=== PATIENT | female | born 1965 | race Caucasian/White ===

== ENCOUNTER 2016-10-08 17:48 | Emergency (ER) | payer MEDICAID ==
[~2016-10-08 17:48] MED LIST: ASPIRIN 81 MG CHEWTAB ONE; MORPHINE SULFATE INJ 4 MG ONE; NITROSTAT SL ONE; ZOFRAN INJ 4 MG VIAL ONE
[2016-10-08] MEDS ORDERED: ZOFRAN INJ 4 MG VIAL IVP ONE (18:01)
[2016-10-08] MEDS ORDERED: ASPIRIN 81 MG CHEWTAB PO ONE (18:01)
[2016-10-08] MEDS ORDERED: MORPHINE SULFATE INJ 4 MG IVP ONE (18:01)
[2016-10-08] MEDS ORDERED: NITROSTAT SL PRN (18:01)
[2016-10-08 18:06] VITALS: BMI 26.7
[2016-10-08 18:16] LABS: BASOPHILS # (AUTO) 0.1 X10^3/uL (0.0-0.1); BASOPHILS % (AUTO) 0.4 % (0.2-1.0); EOSINOPHILS # (AUTO) 0.3 x10^3/uL (0.0-0.2); EOSINOPHILS % (AUTO) 1.4 % (0.9-2.9); HEMATOCRIT 35.4 % (36.0-47.0); HEMOGLOBIN 12.1 g/dL (12.0-16.0); LYMPHOCYTES # (AUTO) 7.2 X10^3/uL (1.3-2.9); LYMPHOCYTES % (AUTO) 38.2 % (21.0-51.0); MEAN CORPUSCULAR HEMOGLOBIN 26.1 pg (27.0-34.0); MEAN CORPUSCULAR HGB CONC 34.3 g/dL (33.0-35.0); MEAN PLATELET VOLUME 7.3 fL (7.4-11.0); MONOCYTES # (AUTO) 0.6 x10^3/uL (0.3-0.8); MONOCYTES % (AUTO) 3.2 % (0.0-13.0); NEUTROPHILS # (AUTO) 10.8 x10^3/uL (2.2-4.8); NEUTROPHILS % (AUTO) 56.8 % (42.0-75.0); PLATELET COUNT 487 X10^3/uL (150.0-450.0); RED BLOOD COUNT 4.65 X10^6/uL (3.5-5.4); RED CELL DISTRIBUTION WIDTH 15.6 % (11.6-16.5)
--- NOTE | 2016-10-08 18:30 | RAD ---
HISTORY: Pain Study: Portable chest Comparison: None Findings: The heart is normal. The pulmonary vessels are normal. No consolidation or effusion is seen. The bon es are intact. IMPRESSION: No acute cardiopulmonary abnormality. Reported By:
[2016-10-08] MEDS ORDERED: DILAUDID INJ IVP ONE ×2 (18:31→20:28)
[2016-10-08 18:33] LABS: ALANINE AMINOTRANSFERASE 29 Units/L (12-78); ALBUMIN 3.7 g/dL (3.4-5.0); ALKALINE PHOSPHATASE 113 Units/L (46-116); ASPARTATE AMINO TRANSFERASE 19 Units/L (15-37); BLOOD UREA NITROGEN 10 mg/dL (7-18); CALCIUM 9.2 mg/dL (8.5-10.1); CARBON DIOXIDE 26.2 mmol/L (21-32); CHLORIDE 93 mmol/L (98-107); CKMB % 2.6 % (<4); COR NA(FOR HYPERGLY) 135 mmol/L (136-145); CREATINE KINASE 39 Units/L (26-192); CREATINE KINASE MB < 1.0 ng/mL (0-4.0); CREATININE 1.03 mg/dL (0.55-1.02); GLUCOSE 273 mg/dL (65-99); SODIUM 131 mmol/L (136-145); TOTAL PROTEIN 8.2 g/dL (6.4-8.2); TROPONIN I < 0.02 ng/mL (0-1.5); eGFR BLACK RACES > 60 (>60); eGFR NON BLACK RACES > 60 (>60)
[2016-10-08] MEDS ORDERED: DILAUDID INJ ONE ×2 (18:33→20:29)
--- NOTE | 2016-10-08 18:34 | DR.CP ---
HPI - Time Seen Time seen: 18:10 - PCP Primary Care Physician: LUIS - HPI Comment HPI Comment: SUDDEN ONSET OF CHEST PAIN RADIATING TO NECK AND LT ARM TIMES 30 MIN. GETTING WORSE. CARDIAC STENT PLACE SEP 20 2016. PAIN 02/06. - Complaint Chief Complaint Doctor Comments: CHEST PAIN Chief Complaint:: PT C/O SHARP PRESSURE TYPE CHEST PAINS THAT IS RADIATING DOWN LT ARM. PT SATES I JUST HAD A HEART ATTACK 3 WEEKS AGO. Self Treatment fo Chief Complaint: x2 nitro sl and x1 81mg asa - Reviewed Nurses Notes Review: Yes - Source History Provided: Patient, Parent - Mode of Arrival Mode of Arrival: Wheelchair - Timing Onset of Chief Complaint: 10/08/16 Came on: Suddenly Pain: Present Now - Duration Duration: Constant Duration: Minutes - Location Location of Chest Pain: Left, Chest Chest Pain Radiation Location: Left Jaw, Left Arm - Context Onset: At rest Cardiac Risk Factors: Smoker, Hyperlipidemia, HTN, Diabetes PE Risk Factors: None History of: Similar pain in the past, [place], Angina, Angioplasty Prehospital Care: SL Nitro, ASA - Quality Quality: Sharp, Stabbing - Severity Severity: Severe - Modifying Factors Worsens: Nothing Impoves: Nothing - Associated Signs and Symptoms Associated Signs and Symptoms: Shortness of Breath, Nausea/Vomiting (NAUSEA) PMH - PMH Past Medical History: Yes Past Medical History: Anxiety, Depression, Diabetes, Dyslipidemia, Hypertension , [place] Past Surgical History: Yes Surgical History: Appendectomy, , Cholecystectomy, Hysterectomy Past Surgical History Comment: HEART CATH - Family History History of Family Medical Conditions: No - Social History Does patient currently use any type of tobacco product: Yes Have you used tobacco products in the last 12 months: Yes Type of Tobacco Use: Cigarettes Does any household member use tobacco: Yes Alcohol Use: None Do you use any recreational Drugs:: No Lives With: Family Lives Where: Home - infectious screening In the last 2 months have you had wt loss of >10#?: NO Have you had fever, night sweats or hemotysis?: No Have you traveled outside the country in the last 6 months?: No Isolation: Standard ROS - Review of Systems Constitutional: Weakness, Fatigue Eyes: No Symptoms Reported ENTM: No Symptoms Reported Respiratoy: Short of Breath Cardiovascular: Chest Pain Gastrointestinal/Abdominal: No Symptoms Reported Genitourinary: No Symptoms Reported Neurological: No Symptoms Reported Musculoskeletal: No Symptoms Reported Integumentary: No Symptoms Reported Hematologic/Lymphatic: No Symptoms Reported Endocrine: No Symptoms Reported All Other Systems: Reviewed and Negative PE - Vitals Vitals: Temperature 98.2 F Pulse Rate [Right Radial] 67 Pulse Rate 84 Respiratory Rate 18 Blood Pressure [Right Arm] 176/77 Blood Pressure 228/105 O2 Sat by Pulse Oximetry 97 - General Limitations: No Limitations General Appearance: Alert - Head Head Exam: Normal Inspection - Eyes Eye exam: Normal Appearance - ENT ENT Exam: Normal External Ear Exam - Respiratory Respiratory Exam: Normal Lung Sounds Bilat Respiratory Exam: Bilateral Clear to Auscultation - Cardiovascular Cardiovascular Exam: Regular Rate Pulse: Normal, Radial, Femoral - Abdominal Exam Abdominal Exam: Normal Bowel Sounds, Soft. negative: Tenderness - Extremities Extremities Exam: Normal Inspection - Back Back Exam: Normal Inspection - Neurologic Neurological Exam: Alert, Oriented X3, CN II-XII Intact, Reflexes Normal. negative: Motor Sensory Deficit - Psychiatric Psychiatric Exam: Anxious - Skin Skin Exam: Normal Color MDM - Additional Information Additional Information Obtained From: Family - Differential Diagnosis Differential Diagnosis: Angina, CHF, Myocardial Infarction, Pericarditis, Pneumonia Course - Treatment Treatment: SEE ORDERS. - Consultation Consultation Comments: BREAKER UP INFORM AND HOSPITALIST TO ADMIT. DR. QUEZADA ACCEPTED PATIENT FOR TRANSFER. - Education/Counseling Education/Counseling: Patient, Family, Education Educated On: Treatment, Diagnosis ROR - Labs Reviewed Laboratory Results Reviewed?: Yes Result Diagrams: 10/08/16 18:00 10/08/16 18:00 Laboratory: WBC 19.0 X10^3/uL (3.6-10.0) H 10/08/16 18:00 RBC 4.65 X10^6/uL (3.5-5.4) 10/08/16 18:00 Hgb 12.1 g/dL (12.0-16.0) 10/08/16 18:00 Hct 35.4 % (36.0-47.0) L 10/08/16 18:00 MCV 76.0 fL (80.0-100.0) L 10/08/16 18:00 MCH 26.1 pg (27.0-34.0) L 10/08/16 18:00 MCHC 34.3 g/dL (33.0-35.0) 10/08/16 18:00 RDW 15.6 % (11.6-16.5) 10/08/16 18:00 Plt Count 487 X10^3/uL (150.0-450.0) H 10/08/16 18:00 MPV 7.3 fL (7.4-11.0) L 10/08/16 18:00 Neut % 56.8 % (42.0-75.0) 10/08/16 18:00 Lymph % 38.2 % (21.0-51.0) 10/08/16 18:00 Alfalfa % 3.2 % (0.0-13.0) 10/08/16 18:00 Eos % 1.4 % (0.9-2.9) 10/08/16 18:00 Baso % 0.4 % (0.2-1.0) 10/08/16 18:00 Neut # 10.8 x10^3/uL (2.2-4.8) H 10/08/16 18:00 Lymph # 7.2 X10^3/uL (1.3-2.9) H 10/08/16 18:00 Alfalfa # 0.6 x10^3/uL (0.3-0.8) 10/08/16 18:00 Eos # 0.3 x10^3/uL (0.0-0.2) H 10/08/16 18:00 Baso # 0.1 X10^3/uL (0.0-0.1) 10/08/16 18:00 Absolute Nucleated RBC 0.1 /100WBC 10/08/16 18:00 INR Target Range - 10/08/16 18:00 INR 0.95 (0.8-1.3) 10/08/16 18:00 PTT 27.1 SECONDS (22.9-36.5) 10/08/16 18:00 PTT Comment - 10/08/16 18:00 Sodium 131 mmol/L (136-145) L 10/08/16 18:00 Corrected Sodium 135 mmol/L (136-145) L 10/08/16 18:00 Potassium 2.9 mmol/L (3.5-5.1) L* 10/08/16 18:00 Chloride 93 mmol/L (98-107) L 10/08/16 18:00 Carbon Dioxide 26.2 mmol/L (21-32) 10/08/16 18:00 BUN 10 mg/dL (7-18) 10/08/16 18:00 Creatinine 1.03 mg/dL (0.55-1.02) H 10/08/16 18:00 Est GFR (MDRD) Af Amer > 60 (>60) 10/08/16 18:00 Est GFR (MDRD) Non-Af > 60 (>60) 10/08/16 18:00 Glucose 273 mg/dL (65-99) H 10/08/16 18:00 Calcium 9.2 mg/dL (8.5-10.1) 10/08/16 18:00 Corrected Calcium TNP 10/08/16 18:00 Total Bilirubin 0.20 mg/dL (0.2-1.0) 10/08/16 18:00 AST 19 Units/L (15-37) 10/08/16 18:00 ALT 29 Units/L (12-78) 10/08/16 18:00 Alkaline Phosphatase 113 Units/L (46-116) 10/08/16 18:00 Creatine Kinase 39 Units/L (26-192) 10/08/16 18:00 CK-MB (CK-2) < 1.0 ng/mL (0-4.0) 10/08/16 18:00 CK/CKMB % Calc 2.6 % (<4) 10/08/16 18:00 Troponin I < 0.02 ng/mL (0-1.5) 10/08/16 18:00 Total Protein 8.2 g/dL (6.4-8.2) 10/08/16 18:00 Albumin 3.7 g/dL (3.4-5.0) 10/08/16 18:00 Globulin 4.5 g/dL (2.5-4.5) 10/08/16 18:00 Albumin/Globulin Ratio 0.8 Ratio (1.1-2.1) L 10/08/16 18:00 - XRAY XRAY Interpreted by: Radiologist XRAY Findings: REPORT DISCUSS WITH PATIENT. - EKG Rhythm: NSR (EKG NOTED) - Diagnosis Discharge Problem: Chest pain Qualifiers: Chest pain type: precordial pain Qualified Code(s): R07.2 - Precordial pain - Discharge Plan Disposition: 02 XFER [facility]-TRM HOSP Condition: Stable - Follow ups/Referrals Follow ups/Referrals: GRAEME SMITH [Primary Care Provider] - 3 days - Instructions
[2016-10-08] MEDS ORDERED: POTASSIUM CHLORIDE LIQ 20 MEQ UDC PO ONE (18:58)
[2016-10-08] MEDS ORDERED: POTASSIUM CHLORIDE LIQ 20 MEQ UDC ONE (19:01)
[2016-10-08 20:11] VITALS: BP 176/77
== END 2016-10-08 20:48 | disposition short-term general hospital (02) ==
LOC: ER 17:48 → EDBD 17:48 → ER 20:48
DX: R07.2 Precordial pain (principal); R06.02 Shortness of breath
CPT/HCPCS: 36415; 71010; 80053; 82550; 82553; 84484; 85025; 85610; 85730; 93005; 93010; 96374; 96375; 99283; 99285; A4222; J1170; J2270; J2405

== ENCOUNTER 2016-11-28 09:32 | Inpatient (IN) | payer MEDICAID ==
[2016-11-28] MEDS ORDERED: DEMEROL INJ IVP PRN (10:00)
[2016-11-28] MEDS ORDERED: NS 1000 ML 1,000 ML IV SCH (10:00)
--- NOTE | 2016-11-28 10:14 | DR.H&P ---
H&P - History & Physical for Day of: H&P Date: 11/28/16 - Chief Complaint Chief Complaint: Abdominal pain with N/V/D - Allergies Allergies/Adverse Reactions: Allergies Allergy/AdvReac Type Severity Reaction Status Date / Time MS Bupropion AdvReac Verified 10/08/16 18:11 [From Wellbutrin] MS Butorphanol [From Stadol] AdvReac Verified 10/08/16 18:11 MS Diphenhydramine AdvReac Verified 10/08/16 18:11 [From Benadryl] MS Metoclopramide AdvReac Verified 10/08/16 18:11 [From Reglan] MS Penicillins [Penicillins] AdvReac Verified 10/08/16 18:11 IVP DYE AdvReac Uncoded 10/08/16 18:11 - History of Present Illness History of Present Illness: This is a 51 year old white female patient who presents to the clinic today with continued c/o nausea, vomiting and diarrhea. Patient states that she has been unable to keep any food down. States anything she puts in will come back up. Is continuing to have multiple episodes of diarrhea daily. Has had small amount mucous in stool. Denies blood in stool. Complains of burning to right side of abdomen. Is taking the Flagyl, Phenergan and Zofran. 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 - Past Medical History Past Medical History: Depression, Anxiety, [place], Hypertension, Dyslipidemia, Diabetes Additional Medical History: DUODENAL CARCINOID TUMOR (2016) - Past Surgical History Surgical History: Appendectomy, Cholecystectomy, , Hysterectomy Additional Surgical History: EGD/COLONSCOPY - Family History Family Medical History: Diabetes Mellitus, Cancer, [place], Coronary Artery Disease, Hypertension - Social History Does patient currently use any type of tobacco product: No Have you used tobacco products in the last 12 months: Yes Type of Tobacco Use: Cigarettes Does any household member use tobacco: Yes Alcohol Use: None Drug Use: None - Review of Systems Constitutional: Weakness, Malaise Eyes: No Symptoms Reported ENT: No Symptoms Reported Respiratory: No Symptoms Reported Cardiovascular: No Symptoms Reported Gastrointestinal: Nausea, Vomiting, Abdominal Pain, Diarrhea Genitourinary: No Symptoms Reported Musculoskeletal: No Symptoms Reported Skin: No Symptoms Reported Neurological: No Symptoms Reported - Physical Exam Vital Signs: Blood Pressure [Right Arm] 176/77 Blood Pressure 176/77 Oriented: Normal Eyes: Normal Ear: Normal Nose: Normal Throat: Normal Respiratory: Clear Throughout Cardiovascular: Normal : Normal Auscultation: Bowel Sounds: Normal Palpation: Normal Tenderness: Diffuse, RUQ, RLQ, Moderate Skin: Normal Musculoskeletal: Normal Psychiatric: Normal Mood Description: Anxious Affect: Normal Speech Pattern: Clear - Assessment/Plan (1) Colitis Status: Acute Plan: CT ABD/PELVIS, IV FLAGYL, LABS (2) AGE (acute gastroenteritis) Status: Acute Plan: CT ABD/PELVIS, IV FLAGYL, LABS (3) Diabetes Qualifiers: Diabetes mellitus type: type 2 Diabetes mellitus complication status: D Diabetes mellitus complication detail: D Diabetic retinopathy severity: D Proliferative retinopathy type: P Diabetes mellitus macular edema: D Diabetes mellitus product expert insulin use: D Laterality: L Chronic kidney disease stage: C Status: Chronic Plan: mONITOR BS, SSRI COVERAGE (4) Hypertension Qualifiers: Hypertension type: essential hypertension Qualified Code(s): I10 - Essential (primary) hypertension Status: Chronic Plan: MONITOR BP
[2016-11-28] MEDS ORDERED: HumuLIN R SUBCUT PRN ×2 (10:18→12:28)
[2016-11-28 10:58] VITALS: BMI 25.4
[2016-11-28] MEDS ORDERED: DILAUDID INJ IVP PRN (11:45)
[2016-11-28] MEDS ORDERED: PEPCID 20 MG IV PREMIX* 20 MG/50 ML BAG IV PRN (12:28)
[2016-11-28 12:57] LABS: BASOPHILS # (AUTO) 0.2 X10^3/uL (0.0-0.1); BASOPHILS % (AUTO) 1.3 % (0.2-1.0); EOSINOPHILS # (AUTO) 0.2 x10^3/uL (0.0-0.2); EOSINOPHILS % (AUTO) 0.9 % (0.9-2.9); HEMATOCRIT 38.6 % (36.0-47.0); HEMOGLOBIN 13.2 g/dL (12.0-16.0); LYMPHOCYTES % (AUTO) 32.3 % (21.0-51.0); MEAN CORPUSCULAR HEMOGLOBIN 25.7 pg (27.0-34.0); MEAN CORPUSCULAR HGB CONC 34.1 g/dL (33.0-35.0); MEAN CORPUSCULAR VOLUME 75.4 fL (80.0-100.0); MONOCYTES # (AUTO) 0.5 x10^3/uL (0.3-0.8); MONOCYTES % (AUTO) 2.8 % (0.0-13.0); NEUTROPHILS # (AUTO) 11.6 x10^3/uL (2.2-4.8); NEUTROPHILS % (AUTO) 62.7 % (42.0-75.0); PLATELET COUNT 609 X10^3/uL (150.0-450.0); RED BLOOD COUNT 5.12 X10^6/uL (3.5-5.4); RED CELL DISTRIBUTION WIDTH 15.6 % (11.6-16.5); WHITE BLOOD COUNT 18.6 X10^3/uL (3.6-10.0)
[2016-11-28 13:21] LABS: ALANINE AMINOTRANSFERASE 33 Units/L (12-78); ALBUMIN 3.4 g/dL (3.4-5.0); ALKALINE PHOSPHATASE 161 Units/L (46-116); AMYLASE 31 Units/L (25-115); ASPARTATE AMINO TRANSFERASE 20 Units/L (15-37); BLOOD UREA NITROGEN 4 mg/dL (7-18); CALCIUM 8.9 mg/dL (8.5-10.1); CARBON DIOXIDE 29.4 mmol/L (21-32); CHLORIDE 101 mmol/L (98-107); COR NA(FOR HYPERGLY) 141 mmol/L (136-145); CREATININE 0.74 mg/dL (0.55-1.02); GLUCOSE 131 mg/dL (65-99); LIPASE 120 Units/L (73-393); SODIUM 140 mmol/L (136-145); TOTAL PROTEIN 8.4 g/dL (6.4-8.2); eGFR BLACK RACES > 60 (>60); eGFR NON BLACK RACES > 60 (>60)
[2016-11-28 13:59] LABS: HYPOCHROMASIA SLIGHT; PLATELET MORPHOLOGY COMMENT NORMAL (NORMAL)
[2016-11-28] MEDS ORDERED: FLAGYL IV PREMIX 500 MG BAG 500 MG/100 ML BAG IV SCH (15:00)
[2016-11-28] MEDS: ZOFRAN INJ 4 MG VIAL IVP SCH ×2 (15:08→18:41)
[2016-11-28] MEDS ORDERED: DIPRIVAN VIAL 20 ML ONE (15:20)
[2016-11-28] MEDS: DILAUDID INJ IVP PRN ×2 (15:59→20:52)
[2016-11-28] MEDS: FLAGYL IV PREMIX 500 MG BAG 500 MG/100 ML BAG IV SCH ×2 (15:59→21:05)
[2016-11-28 18:04] LABS: BILIRUBIN,URINE NEGATIVE (NEGATIVE); BLOOD/HEMOGLOBIN,URINE NEGATIVE (NEGATIVE); GLUCOSE, URINE NEGATIVE (NEGATIVE); KETONES,URINE NEGATIVE (NEGATIVE); LEUKOCYTE ESTERASE ,URINE NEGATIVE (NEGATIVE); NITRITES,URINE NEGATIVE (NEGATIVE); PROTEIN,URINE NEGATIVE (NEGATIVE); UROBILINOGEN,URINE NORMAL (NORMAL)
[2016-11-28] MEDS: NS 1000 ML 1,000 ML IV SCH (18:06)
[2016-11-28 18:36] LABS: APPEARANCE,URINE CLEAR (CLEAR); BACTERIA,URINE TRACE /HPF (NEGATIVE); COLOR,URINE YELLOW (YELLOW); RBC,URINE NONE SEEN /HPF (NEGATIVE); SQUAMOUS EPITHELIAL CELL,UR FEW /HPF (NEGATIVE)
[2016-11-28] MEDS: SNACK - Diabetic Appropriate PO SCH (20:00)
[2016-11-28] MEDS ORDERED: NS 100 ML IV 100 ML IV ONE (20:01)
[2016-11-28] MEDS: PHENERGAN INJ 25 MG IVP PRN (20:53)
--- NOTE | 2016-11-28 21:18 | CT ---
HISTORY: Abdominal pain, history of duodenal cancer Study: CT abdomen and pelvis without contrast Comparison: None Technique: Multiple axial images of the abdomen and pelvis were obtained without IV contrast. Dose reduction techniques including Automated Exposure Control (AEC) and adjustment of mA and kV were utilized. Findings: Please note evaluation is limited without use of IV contrast. The visualized lung bases are clear. The liver, spleen, pancreas, kidneys, and adrenal glands are u nremarkable in their unenhanced CT appearance. The gallbladder is removed. No renal calculi or obstr uctive uropathy identified. The ureters are normal. No free intraperitoneal air. No evidence of intestinal obstruction or inflammation. No free fluid id entified. The appendix is removed. Oral contrast reaches the distal colon. The soft tissues and osseous structures are unremarkable. The vascular structures are unremarkable. No pathologically enlarged lymph nodes are identified. Normal urinary bladder. The uterus is removed . IMPRESSION: 1. No acute abnormality identified. 2. Postsurgical changes as described. Reported By:
[2016-11-29] MEDS: ZOFRAN INJ 4 MG VIAL IVP SCH ×2 (00:30→06:17)
[2016-11-29] MEDS: NS 1000 ML 1,000 ML IV SCH ×3 (02:00→20:49)
[2016-11-29] MEDS: DILAUDID INJ IVP PRN ×6 (02:35→22:30)
[2016-11-29] MEDS: FLAGYL IV PREMIX 500 MG BAG 500 MG/100 ML BAG IV SCH ×4 (03:40→20:38)
[2016-11-29 05:56] LABS: ALANINE AMINOTRANSFERASE 24 Units/L (12-78); ALBUMIN 2.6 g/dL (3.4-5.0); ALKALINE PHOSPHATASE 128 Units/L (46-116); ASPARTATE AMINO TRANSFERASE 21 Units/L (15-37); BLOOD UREA NITROGEN 5 mg/dL (7-18); CARBON DIOXIDE 25.6 mmol/L (21-32); CHLORIDE 105 mmol/L (98-107); COR CA(FOR HYPOALB) 9.1 mg/dL (8.5-10.1); COR NA(FOR HYPERGLY) 142 mmol/L (136-145); CREATININE 0.64 mg/dL (0.55-1.02); GLUCOSE 166 mg/dL (65-99); SODIUM 140 mmol/L (136-145); TOTAL PROTEIN 6.8 g/dL (6.4-8.2); eGFR BLACK RACES > 60 (>60); eGFR NON BLACK RACES > 60 (>60)
[2016-11-29] MEDS ORDERED: K-RIDER 10 MEQ/NS 100 ML 10 MEQ/100 ML BAG IV PRN (06:01)
[2016-11-29] MEDS ORDERED: POTASSIUM CHLORIDE LIQ 20 MEQ UDC PO PRN (06:01)
[2016-11-29] MEDS ORDERED: K-LYTE EFFERVESCENT PO PRN (06:01)
[2016-11-29 06:12] LABS: BASOPHILS % (AUTO) 0.2 % (0.2-1.0); EOSINOPHILS # (AUTO) 0.2 x10^3/uL (0.0-0.2); EOSINOPHILS % (AUTO) 1.3 % (0.9-2.9); HEMATOCRIT 33.8 % (36.0-47.0); HEMOGLOBIN 11.4 g/dL (12.0-16.0); LYMPHOCYTES # (AUTO) 5.1 X10^3/uL (1.3-2.9); LYMPHOCYTES % (AUTO) 34.1 % (21.0-51.0); MEAN CORPUSCULAR HEMOGLOBIN 25.5 pg (27.0-34.0); MEAN CORPUSCULAR HGB CONC 33.6 g/dL (33.0-35.0); MEAN CORPUSCULAR VOLUME 75.7 fL (80.0-100.0); MEAN PLATELET VOLUME 7.3 fL (7.4-11.0); MONOCYTES # (AUTO) 0.6 x10^3/uL (0.3-0.8); MONOCYTES % (AUTO) 3.8 % (0.0-13.0); NEUTROPHILS % (AUTO) 60.6 % (42.0-75.0); PLATELET COUNT 388 X10^3/uL (150.0-450.0); RED BLOOD COUNT 4.46 X10^6/uL (3.5-5.4); RED CELL DISTRIBUTION WIDTH 15.6 % (11.6-16.5); WHITE BLOOD COUNT 14.8 X10^3/uL (3.6-10.0)
[2016-11-29] MEDS: K-DUR TAB 20 MEQ PO PRN ×2 (06:17→18:12)
[2016-11-29 07:26] LABS: HYPOCHROMASIA SLIGHT; PLATELET MORPHOLOGY COMMENT NORMAL (NORMAL)
[2016-11-29] MEDS: PHENERGAN INJ 25 MG IVP PRN (15:26)
[2016-11-29] MEDS ORDERED: LOMOTIL PO PRN (15:48)
[2016-11-29] MEDS ORDERED: PATIENT'S HOME MEDICATION (Acetaminophen With Codeine [Acetaminophen-Cod #4 Tablet] 1 TAB) PO PRN (15:48)
[2016-11-29] MEDS ORDERED: ZOFRAN TAB 4 MG PO PRN (15:48)
[2016-11-29] MEDS ORDERED: TIZANIDINE HCL PO PRN (15:48)
[2016-11-29] MEDS ORDERED: ULTRAM PO PRN (15:48)
[2016-11-29] MEDS ORDERED: MUCINEX EXPECTORANT PO PRN (15:48)
[2016-11-29] MEDS ORDERED: PATIENT'S HOME MEDICATION (Dicyclomine Hcl [Dicyclomine Hcl] 20 MG) PO PRN (15:48)
[2016-11-29] MEDS ORDERED: HumuLIN R SC PRN (15:48)
[2016-11-29] MEDS ORDERED: ATIVAN TAB 1 MG PO PRN (15:51)
[2016-11-29] MEDS ORDERED: ARIPIPRAZOLE 30 MG PO SCH (16:00)
[2016-11-29] MEDS ORDERED: PATIENT'S HOME MEDICATION (Hydralazine Hcl [Hydralazine Hcl] 1 TAB) PO SCH (16:00)
[2016-11-29] MEDS ORDERED: BUSPIRONE HCL 7.5 MG PO SCH (16:00)
[2016-11-29] MEDS ORDERED: BENTYL CAP 10 MG PO PRN (16:30)
[2016-11-29] MEDS ORDERED: ZANAFLEX PO PRN (16:31)
[2016-11-29] MEDS: AMARYL TAB 4 MG PO SCH (16:57)
[2016-11-29] MEDS: TOPROL XL PO SCH (16:58)
[2016-11-29] MEDS: COREG TAB 25 MG PO SCH ×2 (17:02→20:46)
[2016-11-29] MEDS: ASPIRIN 81 MG CHEWTAB PO SCH (17:02)
[2016-11-29] MEDS: NORVASC TAB 10 MG PO SCH (17:05)
[2016-11-29] MEDS: PLAVIX PO SCH (17:05)
[2016-11-29] MEDS: ZANTAC PO SCH (20:38)
[2016-11-29] MEDS: APRESOLINE TAB 25 MG PO SCH (20:39)
[2016-11-29] MEDS: SNACK - Diabetic Appropriate PO SCH (20:40)
[2016-11-29] MEDS: NexIUM PO SCH (20:40)
[2016-11-29] MEDS: BUSPAR PO SCH (20:48)
[2016-11-29] MEDS: TYLENOL #3 TAB (W/CODEINE) PO SCH (20:53)
[2016-11-29] MEDS ORDERED: AMBIEN PO SCH (21:00)
[2016-11-29] MEDS ORDERED: PATIENT'S HOME MEDICATION (Ranitidine Hcl [Zantac] 300 MG) PO SCH (21:00)
[2016-11-29] MEDS ORDERED: DESYREL PO SCH (21:00)
[2016-11-30] MEDS: NS 1000 ML 1,000 ML IV SCH ×2 (02:00→09:08)
[2016-11-30] MEDS: FLAGYL IV PREMIX 500 MG BAG 500 MG/100 ML BAG IV SCH ×2 (02:29→09:02)
[2016-11-30] MEDS: DILAUDID INJ IVP PRN ×2 (02:31→06:15)
[2016-11-30] MEDS: PHENERGAN TAB 25 MG PO PRN ×2 (03:35)
[2016-11-30 06:35] LABS: ALANINE AMINOTRANSFERASE 26 Units/L (12-78); ALBUMIN 2.8 g/dL (3.4-5.0); ALKALINE PHOSPHATASE 117 Units/L (46-116); ASPARTATE AMINO TRANSFERASE 27 Units/L (15-37); BLOOD UREA NITROGEN 5 mg/dL (7-18); CALCIUM 8.2 mg/dL (8.5-10.1); CARBON DIOXIDE 25.8 mmol/L (21-32); CHLORIDE 107 mmol/L (98-107); COR CA(FOR HYPOALB) 9.2 mg/dL (8.5-10.1); COR NA(FOR HYPERGLY) 141 mmol/L (136-145); CREATININE 0.55 mg/dL (0.55-1.02); GLUCOSE 151 mg/dL (65-99); SODIUM 140 mmol/L (136-145); TOTAL PROTEIN 6.9 g/dL (6.4-8.2); eGFR BLACK RACES > 60 (>60); eGFR NON BLACK RACES > 60 (>60)
[2016-11-30 07:42] LABS: BASOPHILS # (AUTO) 0.3 X10^3/uL (0.0-0.1); BASOPHILS % (AUTO) 2.3 % (0.2-1.0); EOSINOPHILS # (AUTO) 0.3 x10^3/uL (0.0-0.2); HEMOGLOBIN 11.2 g/dL (12.0-16.0); LYMPHOCYTES # (AUTO) 5.2 X10^3/uL (1.3-2.9); LYMPHOCYTES % (AUTO) 34.5 % (21.0-51.0); MEAN CORPUSCULAR HEMOGLOBIN 25.9 pg (27.0-34.0); MEAN CORPUSCULAR HGB CONC 33.9 g/dL (33.0-35.0); MEAN CORPUSCULAR VOLUME 76.3 fL (80.0-100.0); MEAN PLATELET VOLUME 7.3 fL (7.4-11.0); MONOCYTES # (AUTO) 0.7 x10^3/uL (0.3-0.8); MONOCYTES % (AUTO) 4.4 % (0.0-13.0); NEUTROPHILS # (AUTO) 8.5 x10^3/uL (2.2-4.8); NEUTROPHILS % (AUTO) 56.8 % (42.0-75.0); PLATELET COUNT 513 X10^3/uL (150.0-450.0); RED BLOOD COUNT 4.32 X10^6/uL (3.5-5.4); RED CELL DISTRIBUTION WIDTH 15.5 % (11.6-16.5); WHITE BLOOD COUNT 14.9 X10^3/uL (3.6-10.0)
[2016-11-30 07:56] LABS: HYPOCHROMASIA SLIGHT; PLATELET MORPHOLOGY COMMENT NORMAL (NORMAL)
[2016-11-30] MEDS ORDERED: TOPROL XL PO ONE (08:45)
[2016-11-30] MEDS: ZANTAC PO SCH (08:55)
[2016-11-30] MEDS: TOPROL XL PO SCH ×2 (08:55→09:03)
[2016-11-30] MEDS: BUSPAR PO SCH (08:56)
[2016-11-30] MEDS: APRESOLINE TAB 25 MG PO SCH ×2 (08:56→09:03)
[2016-11-30] MEDS: NexIUM PO SCH (08:57)
[2016-11-30] MEDS: NORVASC TAB 10 MG PO SCH (08:57)
[2016-11-30] MEDS: AMARYL TAB 4 MG PO SCH (08:57)
[2016-11-30] MEDS: COREG TAB 25 MG PO SCH (08:59)
[2016-11-30] MEDS: ASPIRIN 81 MG CHEWTAB PO SCH (08:59)
[2016-11-30] MEDS ORDERED: ABILIFY PO SCH (09:00)
[2016-11-30] MEDS ORDERED: FLONASE NASAL SPRAY ENOSTRIL SCH (09:00)
[2016-11-30] MEDS ORDERED: LANOXIN PO SCH (09:00)
[2016-11-30] MEDS ORDERED: CLARITIN PO SCH (09:00)
[2016-11-30] MEDS ORDERED: ZESTRIL TAB 10 MG PO SCH (09:00)
[2016-11-30] MEDS ORDERED: LIPITOR TAB 40 MG PO SCH (09:00)
[2016-11-30] MEDS: TYLENOL #3 TAB (W/CODEINE) PO SCH (09:00)
[2016-11-30] MEDS: PLAVIX PO SCH (09:01)
[2016-11-30 11:54] VITALS: BP 135/64
== END 2016-11-30 11:55 | disposition home or self-care (01) | DRG 392 ==
LOC: ICU 09:32 → UNDOADMIN 09:32 → ICU 09:59
PROVIDERS: ADMIT Internal Medicine; ATTEND Internal Medicine
PROC: 0DB68ZX Excision of Stomach, Via Natural or Artificial Opening Endoscopic, Diagnostic (ICD-10-PCS; 2016-11-28)
PROC: 0DB98ZX Excision of Duodenum, Via Natural or Artificial Opening Endoscopic, Diagnostic (ICD-10-PCS; principal; 2016-11-28 13:30)
DX: K52.89 Other specified noninfective gastroenteritis and colitis (principal); A04.5 Campylobacter enteritis; R10.84 Generalized abdominal pain; R11.2 Nausea with vomiting, unspecified; I10 Essential (primary) hypertension; E78.2 Mixed hyperlipidemia; E11.65 Type 2 diabetes mellitus with hyperglycemia; F41.8 Other specified anxiety disorders; K29.60 Other gastritis without bleeding; K44.9 Diaphragmatic hernia without obstruction or gangrene; K20.8 Other esophagitis; E86.0 Dehydration; Z85.068 Personal history of other malignant neoplasm of small intestine; I25.10 Atherosclerotic heart disease of native coronary artery without angina pectoris
CPT/HCPCS: 36415; 74176; 80053; 81001; 82150; 82270; 83690; 84132; 85025; 86140; 87045; 87427; 87899; A4222; Q0169; S0028; S0030; A4217; J2175; J2405; J2550; J3490

== ENCOUNTER 2017-04-28 10:03 | Emergency (ER) | payer MEDICAID ==
[2017-04-28 10:15] VITALS: BP 194/84; BMI 27.1
--- NOTE | 2017-04-28 10:43 | DR.GENAD ---
HPI - PCP Primary Care Physician: LUIS - HPI Comment HPI Comment: HISTORY BELOW. - Complaint/Symptoms Chief Complaint Doctors Comments: LEFT SHOULDER INJURY FEW HOURS AGO. FELL OFF LADDER. NO LOC. Chief Complaint:: PT STATES ABOUT 3 HOURS AGO AND SHE STEPPED UP ON LADDER TO GRAB SOMETHING AND FELL BACK ON LEFT SHOULDER. Self Treatment fo Chief Complaint: PT STATES SHE TOOK A TYLENOL WITH CODEINE ABOUT 2 HRS AGO BUT IT DID NOT HELP WITH PAIN AND IT MADE HER SICK. - Nurses notes reviewed Nurses Notes Review: Yes - Source History Provided: Patient - Mode of Arrival Mode of Arrival: Ambulatory - Timing Onset of Chief Complaint: 04/28/17 Came on: Suddenly - Duration Duration: Constant Duration: Days - Severity Severity: Moderate PMH - PMH Past Medical History: Yes Past Medical History: Depression, Anxiety, [place], Hypertension, Dyslipidemia, Diabetes Past Surgical History: Yes Surgical History: Angioplasty/Stents, Appendectomy, , Cholecystectomy, Hysterectomy - Family History History of Family Medical Conditions: Yes Family Medical History: Diabetes Mellitus, Cancer, [place], Coronary Artery Disease, Heart Failure, Sudden Cardiac , Hypertension - Social History Does patient currently use any type of tobacco product: Yes Have you used tobacco products in the last 12 months: Yes Type of Tobacco Use: Cigarettes How many years tobacco product used: 40 Does any household member use tobacco: Yes Alcohol Use: None Do you use any recreational Drugs:: No Lives With: Spouse Lives Where: Home - infectious screening In the last 2 months have you had wt loss of >10#?: NO Have you had fever, night sweats or hemotysis?: No Have you traveled outside the country in the last 6 months?: No Isolation: Standard ROS - Review of Systems Constitutional: No Symptoms Reported Eyes: No Symptoms Reported ENTM: No Symptoms Reported Respiratoy: No Symptoms Reported Cardiovascular: No Symptoms Reported Gastrointestinal/Abdominal: No Symptoms Reported Genitourinary: No Symptoms Reported Neurological: No Symptoms Reported Musculoskeletal: Left, Shoulder Integumentary: No Symptoms Reported Hematologic/Lymphatic: No Symptoms Reported Endocrine: No Symptoms Reported All Other Systems: Reviewed and Negative PE - Vital Signs Vitals: Temperature 98.7 F Pulse Rate 84 Respiratory Rate 20 Blood Pressure [Left Arm] 135/64 Blood Pressure [Right Arm] 155/79 Blood Pressure 194/84 O2 Sat by Pulse Oximetry 94 - General Limitations: No Limitations General Appearance: Alert - Head Head Exam: Normal Inspection - Eyes Eye exam: Normal Appearance - ENT ENT Exam: Normal External Ear Exam External Ear Exam: Normal External Inspection - Neck Neck Exam: Trachea Midline - Chest Chest Inspection: Symmetric Chest Wall Rise - Respiratory Respiratory Exam: Normal Lung Sounds Bilat Respiratory Exam: Bilateral Clear to Auscultation - Cardiovascular Cardiovascular Exam: Regular Rate, Normal Rhythm, Normal Heart Sounds - Abdominal Exam Abdominal Exam: Normal Inspection - Extremities Extremities Exam: Tenderness (LEFT SHOULDER TENDER. ROM DECREASE.) - Neurologic Neurological Exam: Alert, Oriented X3 - Psychiatric Psychiatric Exam: Normal Affect, Normal Mood - Skin Skin Exam: Normal Color MDM - Differential Diagnosis Differential Diagnosis: SHOULDER FRACTURE, LEFT, SHOULDER SPRAIN, LEFT. Course - Treatment Treatment: SEE ORDERS. - Education/Counseling Education/Counseling: Patient, Education Educated On: Diagnosis, Needs for Follow Up ROR - XRAY XRAY Interpreted by: Radiologist XRAY Findings: REPORT DISCUSS WITH PATIENT. - Diagnosis Discharge Problem: Sprain of left shoulder Qualifiers: Encounter type: initial encounter Shoulder sprain type: unspecified sprain Qualified Code(s): S43.402A - Unspecified sprain of left shoulder joint, initial encounter - Discharge Plan Condition: Stable Prescriptions: Tramadol HCl 50 mg PO Q8H #15 tablet - Follow ups/Referrals Follow ups/Referrals: GRAEME SMITH [Primary Care Provider] - 3 days - Instructions Instructions: Shoulder Sprain Additional Instructions: RETURN TO ED IF WORSE.
--- NOTE | 2017-04-28 10:51 | RAD ---
Examination: Left shoulder, three views History: Fell Findings: No evidence for fracture or dislocation. The humeral head is in normal position. There is s light narrowing of the glenohumeral joint, moderate degenerative change at the AC articulation. No zonia ne destruction or pathologic calcification is noted. Impression: No acute injury identified. Osteoarthritis as described. Reported By:
== END 2017-04-28 11:17 | disposition home or self-care (01) ==
LOC: ER 10:18
DX: S43.402A Unspecified sprain of left shoulder joint, initial encounter (principal); W11.XXXA Fall on and from ladder, initial encounter; Y92.9 Unspecified place or not applicable
CPT/HCPCS: 73030; 99282

== ENCOUNTER 2019-05-04 14:16 | Observation (INO) ==
--- NOTE | 2019-05-04 15:16 | DR.CP ---
HPI Time Seen Time Seen by Provider: 05/04/19 15:08 PCP Primary Care Physician: WOODWARD Complaint Chief Complaint:: PT. C/O CHEST PAIN THAT RADIATES THROUGH TO BACK AND LEFT ARM NUMBNESS. PT. STATES SHE HAS HAD A COUGH. Source History Provided: Patient Mode of Arrival Mode of Arrival: Ambulatory Timing Onset of Chief Complaint: 05/02/19 PMH PMH Past Medical History: Yes Past Medical History: Anxiety, Coronary Artery Disease, Depression, Diabetes, Dyslipidemia, Hypertension and [place] Past Surgical History: Yes Surgical History: Angioplasty/Stents, Appendectomy, , Cholecystectomy and Hysterectomy Family History History of Family Medical Conditions: Yes Family Medical History: Diabetes Mellitus, Cancer, [place], Coronary Artery Disease, Heart Failure, Sudden Cardiac and Hypertension Social History Does patient currently use any type of tobacco product: Yes Have you used tobacco products in the last 12 months: Yes Type of Tobacco Use: Cigarettes Does any household member use tobacco: No Alcohol Use: None Do you use any recreational Drugs:: No Lives With: Family Lives Where: Home infectious screening In the last 2 months have you had wt loss of >10#?: NO Have you had fever, night sweats or hemotysis?: No Have you traveled outside the country in the last 6 months?: No Isolation: Standard PE Vitals Vitals: Temperature 97.2 F Pulse Rate [Apical] 76 Pulse Rate 84 Respiratory Rate 17 Blood Pressure [Left Arm] 217/110 Blood Pressure [Right Arm] 155/79 Blood Pressure 189/101 O2 Sat by Pulse Oximetry 100 ROR Labs Reviewed Result Diagrams: 05/04/19 15:00 05/04/19 15:00 Laboratory: WBC 15.7 X10^3/uL (3.6-10.0) H 05/04/19 15:00 RBC 4.84 X10^6/uL (3.5-5.4) 05/04/19 15:00 Hgb 13.6 g/dL (12.0-16.0) 05/04/19 15:00 Hct 39.2 % (36.0-47.0) 05/04/19 15:00 MCV 81.1 fL (80.0-100.0) 05/04/19 15:00 MCH 28.1 pg (27.0-34.0) 05/04/19 15:00 MCHC 34.7 g/dL (33.0-35.0) 05/04/19 15:00 RDW 14.8 % (11.6-16.5) 05/04/19 15:00 Plt Count 445 X10^3/uL (150.0-450.0) 05/04/19 15:00 MPV 8.1 fL (7.4-11.0) 05/04/19 15:00 Neut % (Auto) 57.9 % (42.0-75.0) 05/04/19 15:00 Lymph % (Auto) 34.3 % (21.0-51.0) 05/04/19 15:00 [place] % (Auto) 5.5 % (0.0-13.0) 05/04/19 15:00 Eos % (Auto) 1.3 % (0.9-2.9) 05/04/19 15:00 Baso % (Auto) 1.0 % (0.2-1.0) 05/04/19 15:00 Neut # (Auto) 9.1 x10^3/uL (2.2-4.8) H 05/04/19 15:00 Lymph # (Auto) 5.4 X10^3/uL (1.3-2.9) H 05/04/19 15:00 [place] # (Auto) 0.9 x10^3/uL (0.3-0.8) H 05/04/19 15:00 Eos # (Auto) 0.2 x10^3/uL (0.0-0.2) 05/04/19 15:00 Baso # (Auto) 0.1 X10^3/uL (0.0-0.1) 05/04/19 15:00 Absolute Nucleated RBC 0.1 /100WBC 05/04/19 15:00 Sodium 136 mmol/L (136-145) 05/04/19 15:00 Corrected Sodium TNP 05/04/19 15:00 Potassium 3.4 mmol/L (3.5-5.1) L 05/04/19 15:00 Chloride 97 mmol/L (98-107) L 05/04/19 15:00 Carbon Dioxide 24.9 mmol/L (21-32) 05/04/19 15:00 BUN 2 mg/dL (7-18) L 05/04/19 15:00 Creatinine 0.73 mg/dL (0.55-1.02) 05/04/19 15:00 Est GFR (MDRD) Af Amer > 60 (>60) 05/04/19 15:00 Est GFR (MDRD) Non-Af > 60 (>60) 05/04/19 15:00 Glucose 102 mg/dL (65-99) H 05/04/19 15:00 Calcium 9.0 mg/dL (8.5-10.1) 05/04/19 15:00 Corrected Calcium TNP 05/04/19 15:00 Total Bilirubin 0.10 mg/dL (0.2-1.0) L 05/04/19 15:00 AST 21 Units/L (15-37) 05/04/19 15:00 ALT 35 Units/L (12-78) 05/04/19 15:00 Alkaline Phosphatase 104 Units/L (46-116) 05/04/19 15:00 Creatine Kinase 55 Units/L (26-192) 05/04/19 15:00 CK-MB (CK-2) < 1.0 ng/mL (0-4.0) 05/04/19 15:00 CK/CKMB % Calc 1.8 % (<4) 05/04/19 15:00 Troponin I < 0.02 ng/mL (0-1.5) 05/04/19 15:00 Total Protein 8.6 g/dL (6.4-8.2) H 05/04/19 15:00 Albumin 4.1 g/dL (3.4-5.0) 05/04/19 15:00 Globulin 4.5 g/dL (2.5-4.5) 05/04/19 15:00 Albumin/Globulin Ratio 0.9 Ratio (1.1-2.1) L 05/04/19 15:00 Opioid Opioid Risk Tool Age (Dick box if 16-45): No History of Preadolescent Sexual Abuse: No Total: 0 Total Score Risk Category: Low Risk Copyright: Fortino ÁLVAREZ predicting aberrant behaviors Instructions Forms: Excuse From Work Patient Portal
[2019-05-04] MEDS ORDERED: ZOFRAN INJ 4 MG VIAL ONE (15:28)
[2019-05-04] MEDS ORDERED: ZOFRAN INJ 4 MG VIAL IVP ONE (15:28)
[2019-05-04] MEDS ORDERED: ZOFRAN INJ 4 MG VIAL IVP PRN (16:07)
[2019-05-04] MEDS ORDERED: MORPHINE SULFATE INJ 4 MG IVP ONE (16:07)
[2019-05-04] MEDS ORDERED: NITROSTAT ONE ×2 (16:10→16:38)
[2019-05-04] MEDS: NITROSTAT SL PRN ×3 (16:12→23:56)
[2019-05-04] MEDS ORDERED: MORPHINE SULFATE INJ 4 MG ONE (16:13)
[2019-05-04 16:28] LABS: BASOPHILS # (AUTO) 0.1 X10^3/uL (0.0-0.1); EOSINOPHILS # (AUTO) 0.2 x10^3/uL (0.0-0.2); EOSINOPHILS % (AUTO) 1.3 % (0.9-2.9); HEMATOCRIT 39.2 % (36.0-47.0); HEMOGLOBIN 13.6 g/dL (12.0-16.0); LYMPHOCYTES # (AUTO) 5.4 X10^3/uL (1.3-2.9); LYMPHOCYTES % (AUTO) 34.3 % (21.0-51.0); MEAN CORPUSCULAR HEMOGLOBIN 28.1 pg (27.0-34.0); MEAN CORPUSCULAR HGB CONC 34.7 g/dL (33.0-35.0); MEAN CORPUSCULAR VOLUME 81.1 fL (80.0-100.0); MEAN PLATELET VOLUME 8.1 fL (7.4-11.0); MONOCYTES # (AUTO) 0.9 x10^3/uL (0.3-0.8); MONOCYTES % (AUTO) 5.5 % (0.0-13.0); NEUTROPHILS # (AUTO) 9.1 x10^3/uL (2.2-4.8); NEUTROPHILS % (AUTO) 57.9 % (42.0-75.0); PLATELET COUNT 445 X10^3/uL (150.0-450.0); RED BLOOD COUNT 4.84 X10^6/uL (3.5-5.4); RED CELL DISTRIBUTION WIDTH 14.8 % (11.6-16.5); WHITE BLOOD COUNT 15.7 X10^3/uL (3.6-10.0)
[2019-05-04 16:40] LABS: BLOOD UREA NITROGEN 2 mg/dL (7-18); CARBON DIOXIDE 24.9 mmol/L (21-32); CHLORIDE 97 mmol/L (98-107); CREATININE 0.73 mg/dL (0.55-1.02); SODIUM 136 mmol/L (136-145); TROPONIN I < 0.02 ng/mL (0-1.5); eGFR NON BLACK RACES > 60 (>60)
[2019-05-04 16:44] LABS: ALANINE AMINOTRANSFERASE 35 Units/L (12-78); ALBUMIN 4.1 g/dL (3.4-5.0); ALKALINE PHOSPHATASE 104 Units/L (46-116); ASPARTATE AMINO TRANSFERASE 21 Units/L (15-37); CKMB % 1.8 % (<4); CREATINE KINASE 55 Units/L (26-192); CREATINE KINASE MB < 1.0 ng/mL (0-4.0); TOTAL PROTEIN 8.6 g/dL (6.4-8.2)
--- NOTE | 2019-05-04 16:52 | RAD ---
CHEST, 1 VIEWHistory: chest painComparison: No recent exams are available for comparison.Findings: Heart is normal in size. No focal infiltrate or significant effusion is identified. No pneumothorax.Impression: No acute cardiopulmonary abnormality.Electronically signed by: MARLENY NARVAEZ (May 04, 2019 16:51:48)
[2019-05-04] MEDS ORDERED: DEMEROL INJ ONE ×2 (16:58→20:24)
[2019-05-04] MEDS ORDERED: CATAPRES TAB 0.2 MG ONE (16:58)
[2019-05-04] MEDS ORDERED: CATAPRES TAB 0.2 MG PO ONE (17:01)
[2019-05-04] MEDS ORDERED: DEMEROL INJ IVP ONE (17:01)
--- NOTE | 2019-05-04 17:57 | DR.CP ---
HPI Time Seen Time Seen by Provider: 05/04/19 15:08 PCP Primary Care Physician: CRISSY HPI Comment HPI Comment: PATIENT IS 53YR OLD FEMALE IN ER WITH CHEST PAIN. PATIENT HAVE HISTORY OF HYPERTENSION AND DM AND HYPERLIPIDEMIA AND IS A SMOKER. PAIN IS IN [place] ECORDIAL AREA, PRESSURE, 8/10 RADIATING TO LEFT ARM AND BACK ASSOCIATED WITH SOB, WEAKNESS AND LEFT ARM NUMBNESS. NO FEVER BUT COUGHING. NO DYSURIA. SIMILAR PAIN PREVIOUSLY BUT NOT THIS INTENSE. Complaint Chief Complaint Doctor Comments: CHEST PAIN TIMES 2 DAYS. Chief Complaint:: PT. C/O CHEST PAIN THAT RADIATES THROUGH TO BACK AND LEFT ARM NUMBNESS. PT. STATES SHE HAS HAD A COUGH. Reviewed Nurses Notes Review: Yes Source History Provided: Patient Mode of Arrival Mode of Arrival: Ambulatory Timing Onset of Chief Complaint: 05/02/19 Came on: Suddenly Pain: Present Now Duration Duration: Intermittent Duration: Days Location Location of Chest Pain: Left and Chest Chest Pain Radiation Location: Left Arm and Back Context Onset: At rest Cardiac Risk Factors: Smoker, Family History, Hyperlipidemia, HTN and Diabetes PE Risk Factors: None History of: None Prehospital Care: None Quality Quality: Pressure like Severity Severity: Moderate Modifying Factors Worsens: Exertion Impoves: Rest Associated Signs and Symptoms Associated Signs and Symptoms: Shortness of Breath PMH PMH Past Medical History: Yes Past Medical History: Anxiety, Coronary Artery Disease, Depression, Diabetes, Dyslipidemia, Hypertension and [place] Past Surgical History: Yes Surgical History: Angioplasty/Stents, Appendectomy, , Cholecystectomy and Hysterectomy Family History History of Family Medical Conditions: Yes Family Medical History: Diabetes Mellitus, Cancer, [place], Coronary Artery Disease, Heart Failure, Sudden Cardiac and Hypertension Social History Does patient currently use any type of tobacco product: Yes Have you used tobacco products in the last 12 months: Yes Type of Tobacco Use: Cigarettes Does any household member use tobacco: No Alcohol Use: None Do you use any recreational Drugs:: No Lives With: Family Lives Where: Home infectious screening In the last 2 months have you had wt loss of >10#?: NO Have you had fever, night sweats or hemotysis?: No Have you traveled outside the country in the last 6 months?: No Isolation: Standard ROS Review of Systems Constitutional: See HPI, Weakness and Fatigue; negative Fever Eyes: No Symptoms Reported and See HPI ENTM: See HPI and Nose Congestion; negative Ear Pain and Throat Pain Respiratoy: See HPI, Moist Cough and Short of Breath; negative Wheezing Cardiovascular: See HPI and Chest Pain; negative Edema and Palpitations Gastrointestinal/Abdominal: No Symptoms Reported and See HPI; negative Abdominal Pain, Nausea and Vomiting Genitourinary: No Symptoms Reported and See HPI Neurological: See HPI, Weakness and Dizziness; negative Depressed, Emotional Problems and Headache Musculoskeletal: No Symptoms Reported and See HPI Integumentary: No Symptoms Reported and See HPI; negative Change in Color, Rash and Juandice Hematologic/Lymphatic: No Symptoms Reported and See HPI; negative Easy Bruising and Swollen Glands Endocrine: No Symptoms Reported and See HPI; negative Increased Thirst, Inc reased Urine and Decreased Appetite Psychiatric: No Symptoms Reported and See HPI All Other Systems: Reviewed and Negative PE Vitals Vitals: Temperature 97.2 F Pulse Rate [Apical] 76 Pulse Rate 68 Respiratory Rate 20 Blood Pressure [Left Arm] 217/110 Blood Pressure [Right Arm] 155/79 Blood Pressure 177/80 O2 Sat by Pulse Oximetry 97 General Limitations: No Limitations General Appearance: Alert and In No Apparent Distress Head Head Exam: Normal Inspection and Atraumatic Eyes Eye exam: Normal Appearance and PERRL; negative Scleral Icterus and Conjunctival Injection ENT ENT Exam: Normal Exam and Normal External Ear Exam; negative Normal Oropharynx and TM's Normal Bilaterally Chest Chest Inspection: Normal Inspection and Symmetric Chest Wall Rise; negative Tenderness Respiratory Respiratory Exam: Normal Lung Sounds Bilat; negative Accessory Muscle Use, Chest Wall Tenderness and Respiratory Distress Respiratory Exam: Bilateral: Rhonchi and Lower: Rhonchi Cardiovascular Cardiovascular Exam: Regular Rate, Normal Rhythm and Normal Heart Sounds; negative Systolic Murmur and Diastolic Murmur Pulse: Normal Edema: Normal Abdominal Exam Abdominal Exam: Normal Inspection, Normal Bowel Sounds and Soft; negative Tenderness Extremities Extremities Exam: Normal Inspection and Normal Capillary Refill; negative Tenderness, Edema and Calf Tenderness Back Back Exam: Normal Inspection; negative Tenderness, (R) CVA Tenderness, (L) CVA Tenderness, Paraspinal Tenderness and Vertebral Tenderness Neurologic Neurological Exam: Alert and Oriented X3 Psychiatric Psychiatric Exam: Normal Affect and Normal Mood Skin Skin Exam: Warm, Dry, Intact and Normal Color MDM Differential Diagnosis Differential Diagnosis: Angina, Chest Wall Pain, CHF, Costochondritis, Gastritis, Myocardial Infarction, Pericarditis, Pleuritis, Pneumonia, Pneumothorax and Pulmonary Embolus COURSE Treatment Treatment: SEE ORDERS. NTG 0.4MG S/L AND CLONIDINE 0.2MG PATCH. MORPHIN 4MG IV AND ZOFRAN 4MG IM. PAIN IMPROVING. Reevaluation 1st: Resolved and Improved (PAIN , CHEST IMPROVING.) 2nd: Resolved and Improved (CHEST PAIN RESOLVED WITH PAIN MED.) Consultation Consultation Comments: DISCUSSED PATIENT WITH .HE WILL ADMIT PATIENT. Education/Counseling Education/Counseling: Patient Educated On: Diagnosis ROR Labs Reviewed Laboratory Results Reviewed?: Yes Result Diagrams: 05/05/19 04:00 05/05/19 04:00 Laboratory: WBC 15.7 X10^3/uL (3.6-10.0) H 05/04/19 15:00 RBC 4.84 X10^6/uL (3.5-5.4) 05/04/19 15:00 Hgb 13.6 g/dL (12.0-16.0) 05/04/19 15:00 Hct 39.2 % (36.0-47.0) 05/04/19 15:00 MCV 81.1 fL (80.0-100.0) 05/04/19 15:00 MCH 28.1 pg (27.0-34.0) 05/04/19 15:00 MCHC 34.7 g/dL (33.0-35.0) 05/04/19 15:00 RDW 14.8 % (11.6-16.5) 05/04/19 15:00 Plt Count 445 X10^3/uL (150.0-450.0) 05/04/19 15:00 MPV 8.1 fL (7.4-11.0) 05/04/19 15:00 Neut % (Auto) 57.9 % (42.0-75.0) 05/04/19 15:00 Lymph % (Auto) 34.3 % (21.0-51.0) 05/04/19 15:00 [place] % (Auto) 5.5 % (0.0-13.0) 05/04/19 15:00 Eos % (Auto) 1.3 % (0.9-2.9) 05/04/19 15:00 Baso % (Auto) 1.0 % (0.2-1.0) 05/04/19 15:00 Neut # (Auto) 9.1 x10^3/uL (2.2-4.8) H 05/04/19 15:00 Lymph # (Auto) 5.4 X10^3/uL (1.3-2.9) H 05/04/19 15:00 [place] # (Auto) 0.9 x10^3/uL (0.3-0.8) H 05/04/19 15:00 Eos # (Auto) 0.2 x10^3/uL (0.0-0.2) 05/04/19 15:00 Baso # (Auto) 0.1 X10^3/uL (0.0-0.1) 05/04/19 15:00 Absolute Nucleated RBC 0.1 /100WBC 05/04/19 15:00 Sodium 136 mmol/L (136-145) 05/04/19 15:00 Corrected Sodium TNP 05/04/19 15:00 Potassium 3.4 mmol/L (3.5-5.1) L 05/04/19 15:00 Chloride 97 mmol/L (98-107) L 05/04/19 15:00 Carbon Dioxide 24.9 mmol/L (21-32) 05/04/19 15:00 BUN 2 mg/dL (7-18) L 05/04/19 15:00 Creatinine 0.73 mg/dL (0.55-1.02) 05/04/19 15:00 Est GFR (MDRD) Af Amer > 60 (>60) 05/04/19 15:00 Est GFR (MDRD) Non-Af > 60 (>60) 05/04/19 15:00 Glucose 102 mg/dL (65-99) H 05/04/19 15:00 Calcium 9.0 mg/dL (8.5-10.1) 05/04/19 15:00 Corrected Calcium TNP 05/04/19 15:00 Total Bilirubin 0.10 mg/dL (0.2-1.0) L 05/04/19 15:00 AST 21 Units/L (15-37) 05/04/19 15:00 ALT 35 Units/L (12-78) 05/04/19 15:00 Alkaline Phosphatase 104 Units/L (46-116) 05/04/19 15:00 Creatine Kinase 41 Units/L (26-192) 05/04/19 19:05 CK-MB (CK-2) < 1.0 ng/mL (0-4.0) 05/04/19 19:05 CK/CKMB % Calc 2.4 % (<4) 05/04/19 19:05 Troponin I < 0.02 ng/mL (0-1.5) 05/04/19 19:05 Total Protein 8.6 g/dL (6.4-8.2) H 05/04/19 15:00 Albumin 4.1 g/dL (3.4-5.0) 05/04/19 15:00 Globulin 4.5 g/dL (2.5-4.5) 05/04/19 15:00 Albumin/Globulin Ratio 0.9 Ratio (1.1-2.1) L 05/04/19 15:00 Other Results Comments: Findings: Heart is normal in size. No focal infiltrate or significant effusion is identified. No pneumothorax. Impression: No acute cardiopulmonary abnormality. XRAY XRAY Interpreted by: Radiologist XRAY Findings: REPORT NOTED AND DISCUSSED WITH PATIENT. EKG Rate: 91 [place]: Normal Rhythm: NSR Hypertrophy: LAE and LVH ST: Nonsp Opioid Opioid Risk Tool Age (Dick box if 16-45): No History of Preadolescent Sexual Abuse: No Total: 0 Total Score Risk Category: Low Risk Copyright: Fortino ÁLVAREZ predicting aberrant behaviors Instructions Forms: Excuse From Work Patient Portal
[2019-05-04 19:33] LABS: CKMB % 2.4 % (<4); CREATINE KINASE 41 Units/L (26-192); CREATINE KINASE MB < 1.0 ng/mL (0-4.0); TROPONIN I < 0.02 ng/mL (0-1.5)
[2019-05-04] MEDS ORDERED: PHENERGAN INJ 25 MG IM ONE ×2 (20:22→20:23)
[2019-05-04] MEDS ORDERED: DEMEROL INJ IM ONE (20:22)
[2019-05-04] MEDS ORDERED: VANCOMYCIN HCL 1 G in D5W 250 ML IV 250 ML IV SCH (21:15)
[2019-05-04] MEDS ORDERED: NS 1000 ML 1,000 ML IV SCH (23:30)
[2019-05-04 23:40] VITALS: BMI 25.9
[2019-05-05] MEDS: NITROSTAT SL PRN ×3 (00:14→08:24)
[2019-05-05 00:15] LABS: CKMB % 2.8 % (<4); CREATINE KINASE 36 Units/L (26-192); CREATINE KINASE MB < 1.0 ng/mL (0-4.0); TROPONIN I < 0.02 ng/mL (0-1.5)
[2019-05-05 00:30] LABS: APPEARANCE,URINE CLEAR (CLEAR); BACTERIA,URINE NEGATIVE /HPF (NEGATIVE); BILIRUBIN,URINE NEGATIVE (NEGATIVE); BLOOD/HEMOGLOBIN,URINE 1+ (NEGATIVE); COLOR,URINE AMBER (YELLOW); GLUCOSE, URINE NEGATIVE (NEGATIVE); KETONES,URINE NEGATIVE (NEGATIVE); LEUKOCYTE ESTERASE ,URINE NEGATIVE (NEGATIVE); NITRITES,URINE NEGATIVE (NEGATIVE); PROTEIN,URINE 2+ (NEGATIVE); SQUAMOUS EPITHELIAL CELL,UR FEW /HPF (NEGATIVE); UROBILINOGEN,URINE 1+ (NORMAL)
[2019-05-05 00:31] LABS: HYALINE CASTS, URINE FEW /LPF (NEGATIVE); MUCUS,URINE FEW /HPF (NEGATIVE)
[2019-05-05] MEDS: DEMEROL INJ IVP PRN ×2 (02:53→08:55)
[2019-05-05] MEDS ORDERED: FLAGYL IV PREMIX 500 MG BAG 500 MG/100 ML BAG IV SCH (03:00)
[2019-05-05 05:25] LABS: BASOPHILS # (AUTO) 0.1 X10^3/uL (0.0-0.1); BASOPHILS % (AUTO) 0.7 % (0.2-1.0); EOSINOPHILS # (AUTO) 0.3 x10^3/uL (0.0-0.2); LYMPHOCYTES # (AUTO) 5.8 X10^3/uL (1.3-2.9); MEAN CORPUSCULAR HGB CONC 33.9 g/dL (33.0-35.0); MEAN CORPUSCULAR VOLUME 82.5 fL (80.0-100.0); MEAN PLATELET VOLUME 8.3 fL (7.4-11.0); MONOCYTES # (AUTO) 1.1 x10^3/uL (0.3-0.8); MONOCYTES % (AUTO) 7.6 % (0.0-13.0); NEUTROPHILS # (AUTO) 6.6 x10^3/uL (2.2-4.8); NEUTROPHILS % (AUTO) 47.7 % (42.0-75.0); PLATELET COUNT 396 X10^3/uL (150.0-450.0); RED BLOOD COUNT 4.12 X10^6/uL (3.5-5.4); RED CELL DISTRIBUTION WIDTH 14.6 % (11.6-16.5); WHITE BLOOD COUNT 13.9 X10^3/uL (3.6-10.0)
[2019-05-05 05:53] LABS: CHOL/HDL RATIO 10.1 (0.0-5.0)
[2019-05-05 05:56] LABS: ALANINE AMINOTRANSFERASE 32 Units/L (12-78); ALBUMIN 3.2 g/dL (3.4-5.0); ALKALINE PHOSPHATASE 85 Units/L (46-116); ASPARTATE AMINO TRANSFERASE 21 Units/L (15-37); BLOOD UREA NITROGEN 6 mg/dL (7-18); CALCIUM 8.5 mg/dL (8.5-10.1); CARBON DIOXIDE 26.1 mmol/L (21-32); CHLORIDE 99 mmol/L (98-107); CKMB % 3.2 % (<4); COR CA(FOR HYPOALB) 9.1 mg/dL (8.5-10.1); CREATINE KINASE 31 Units/L (26-192); CREATINE KINASE MB < 1.0 ng/mL (0-4.0); CREATININE 0.76 mg/dL (0.55-1.02); MAGNESIUM 1.9 mg/dL (1.7-2.9); SODIUM 135 mmol/L (136-145); TOTAL PROTEIN 6.8 g/dL (6.4-8.2); TROPONIN I < 0.02 ng/mL (0-1.5); eGFR NON BLACK RACES > 60 (>60)
[2019-05-05 06:02] LABS: HEMOGLOBIN 11.5 g/dL (12.0-16.0)
[2019-05-05] MEDS ORDERED: POTASSIUM CHLORIDE LIQ 20 MEQ UDC PO PRN (06:08)
[2019-05-05] MEDS ORDERED: K-DUR TAB 20 MEQ PO PRN (06:08)
[2019-05-05] MEDS ORDERED: POTASSIUM CHL 40 MEQ/NS 0.45% 500 ML IV PRN (06:08)
[2019-05-05] MEDS ORDERED: POTASSIUM CHL 60 MEQ/NS 0.45% 500 ML IV PRN (06:08)
[2019-05-05] MEDS ORDERED: K-RIDER 10 MEQ/NS 100 ML 10 MEQ/100 ML BAG IV PRN (06:08)
[2019-05-05] MEDS ORDERED: MICRO K EXTEN CAP 10 MEQ PO PRN (06:08)
[2019-05-05] MEDS ORDERED: KLOR-CON PO PRN (06:08)
[2019-05-05] MEDS ORDERED: MAGNESIUM SULFATE 1 GRAM/100 mL PREMIX 1 GM/100 ML BAG IV PRN (06:08)
[2019-05-05] MEDS ORDERED: KLOR-CON PO ONE (06:32)
--- NOTE | 2019-05-05 08:32 | DR.SSS ---
SHORT STAY SUMMARY Admission Date Date of Admission: 05/04/19 Discharge Date Discharge Date: 05/05/19 Admission Diagnoses Admission Diagnoses: Unstable Angina Discharge Diagnoses Discharge Diagnoses: Unstable Angina Chief Complaint Chief Complaint: Chest pain History of Present Illness History of Present Illness: Pt is a 53 yo f pmhx [place], CAD(PCIx4, 1st in 2014, last in 2017 at [facility]), HTN, DMT2, admitted for chest pain rule out, unstable angina. She presented after having acute substernal squeezing and pressure-like pain, w/ associated sx of diaphoresis and shortness of breath. Her initial sx awakened her from sleep and lasting for over an hour. She recalled having similar pain during her previous admissions that required coronary intervention. Her EKG NSR, Troponin negative x4, CXR negative, Wbc 15.7>13.9, K 3.4>3.2, Vitals stable. She has now received multiple SL nitro that has not helped her pain. She is at high risk [place] NENA score 4, and heparin gtt started. Believe it is in patient's best interests to be transferred to high level of care for cardiac evaluation due to high risk. Past Medical History Past Medical History: Anxiety, Coronary Artery Disease, Depression, Diabetes, Dyslipidemia, Hypertension and [place] Additional Medical History: DUODENAL CARCINOID TUMOR (2016) Past Surgical History Surgical History: Abdominal Surgery, Angioplasty/Stents, Appendectomy, C- Section, Cholecystectomy and Hysterectomy Additional Surgical History: EGD/COLONSCOPY Allergies Allergies Allergy/AdvReac Type Severity Reaction Status Date / Time bupropion [From Wellbutrin] Allergy Verified 05/04/19 14:40 butorphanol [From Stadol] Allergy Verified 05/04/19 14:40 diphenhydramine Allergy Verified 05/04/19 14:40 [From Benadryl] metoclopramide [From Reglan] Allergy Verified 05/04/19 14:40 Penicillins Allergy Verified 05/04/19 14:40 haloperidol [From Haldol] AdvReac Verified 05/04/19 14:40 ketorolac [From Toradol] AdvReac Verified 05/04/19 14:40 IVP DYE AdvReac Uncoded 05/04/19 14:40 Medications Home Medications: bupropion [From Wellbutrin] Allergy (Verified 05/04/19 14:40) butorphanol [From Stadol] Allergy (Verified 05/04/19 14:40) diphenhydramine [From Benadryl] Allergy (Verified 05/04/19 14:40) metoclopramide [From Reglan] Allergy (Verified 05/04/19 14:40) Penicillins Allergy (Verified 05/04/19 14:40) haloperidol [From Haldol] Adverse Reaction (Verified 05/04/19 14:40) ketorolac [From Toradol] Adverse Reaction (Verified 05/04/19 14:40) IVP DYE Adverse Reaction (Uncoded 05/04/19 14:40) Family History Family Medical History: Diabetes Mellitus, Cancer, [place], Coronary Artery Disease, Heart Failure, Sudden Cardiac and Hypertension Social History Does patient currently use any type of tobacco product: Yes Have you used tobacco products in the last 12 months: Yes Type of Tobacco Use: Cigarettes Does any household member use tobacco: No Alcohol Use: None Drug Use: None Review of Systems Constitutional: denies Fever and Chills Eyes: No Symptoms Reported ENT: No Symptoms Reported Respiratory: Cough and Shortness of Breath Cardiovascular: Chest Pain; denies Edema Gastrointestinal: No Symptoms Reported Genitourinary: No Symptoms Reported Musculoskeletal: No Symptoms Reported Skin: No Symptoms Reported Neurological: No Symptoms Reported Physical Exam Vital Signs: Last Vital Signs Temp 98.4 F 05/05/19 04:00 Pulse 56 L 05/05/19 04:00 Resp 18 05/05/19 04:00 BP 124/62 05/05/19 04:00 Pulse Ox 96 05/05/19 04:00 Oriented: Normal Eyes: Normal Ear: Normal Nose: Normal Throat: Normal Respiratory: Clear Throughout Cardiovascular: Normal : Normal Palpation: Normal Tenderness: Normal Skin: Normal Musculoskeletal: Normal Psychiatric: Normal Mood Description: Calm Affect: Anxious Speech Pattern: Clear Labs Labs: Laboratory Last Values WBC 13.9 X10^3/uL (3.6-10.0) H 05/05/19 04:00 RBC 4.12 X10^6/uL (3.5-5.4) 05/05/19 04:00 Hgb 11.5 g/dL (12.0-16.0) L D 05/05/19 04:00 Hct 34.0 % (36.0-47.0) L 05/05/19 04:00 MCV 82.5 fL (80.0-100.0) 05/05/19 04:00 MCH 28.0 pg (27.0-34.0) 05/05/19 04:00 MCHC 33.9 g/dL (33.0-35.0) 05/05/19 04:00 RDW 14.6 % (11.6-16.5) 05/05/19 04:00 Plt Count 396 X10^3/uL (150.0-450.0) 05/05/19 04:00 MPV 8.3 fL (7.4-11.0) 05/05/19 04:00 Neut % (Auto) 47.7 % (42.0-75.0) 05/05/19 04:00 Lymph % (Auto) 42.0 % (21.0-51.0) 05/05/19 04:00 [place] % (Auto) 7.6 % (0.0-13.0) 05/05/19 04:00 Eos % (Auto) 2.0 % (0.9-2.9) 05/05/19 04:00 Baso % (Auto) 0.7 % (0.2-1.0) 05/05/19 04:00 Neut # (Auto) 6.6 x10^3/uL (2.2-4.8) H 05/05/19 04:00 Lymph # (Auto) 5.8 X10^3/uL (1.3-2.9) H 05/05/19 04:00 [place] # (Auto) 1.1 x10^3/uL (0.3-0.8) H 05/05/19 04:00 Eos # (Auto) 0.3 x10^3/uL (0.0-0.2) H 05/05/19 04:00 Baso # (Auto) 0.1 X10^3/uL (0.0-0.1) 05/05/19 04:00 Absolute Nucleated RBC 0.0 /100WBC 05/05/19 04:00 Sodium 135 mmol/L (136-145) L 05/05/19 04:00 Corrected Sodium TNP 05/05/19 04:00 Potassium 3.2 mmol/L (3.5-5.1) L 05/05/19 04:00 Chloride 99 mmol/L (98-107) 05/05/19 04:00 Carbon Dioxide 26.1 mmol/L (21-32) 05/05/19 04:00 BUN 6 mg/dL (7-18) L 05/05/19 04:00 Creatinine 0.76 mg/dL (0.55-1.02) 05/05/19 04:00 Est GFR (MDRD) Af Amer > 60 (>60) 05/05/19 04:00 Est GFR (MDRD) Non-Af > 60 (>60) 05/05/19 04:00 Glucose 104 mg/dL (65-99) H 05/05/19 04:00 Calcium 8.5 mg/dL (8.5-10.1) 05/05/19 04:00 Corrected Calcium 9.1 mg/dL (8.5-10.1) 05/05/19 04:00 Magnesium 1.9 mg/dL (1.7-2.9) 05/05/19 04:00 Total Bilirubin 0.10 mg/dL (0.2-1.0) L 05/05/19 04:00 AST 21 Units/L (15-37) 05/05/19 04:00 ALT 32 Units/L (12-78) 05/05/19 04:00 Alkaline Phosphatase 85 Units/L (46-116) 05/05/19 04:00 Creatine Kinase 31 Units/L (26-192) 05/05/19 04:00 CK-MB (CK-2) < 1.0 ng/mL (0-4.0) 05/05/19 04:00 CK/CKMB % Calc 3.2 % (<4) 05/05/19 04:00 Troponin I < 0.02 ng/mL (0-1.5) 05/05/19 04:00 Total Protein 6.8 g/dL (6.4-8.2) 05/05/19 04:00 Albumin 3.2 g/dL (3.4-5.0) L 05/05/19 04:00 Globulin 3.6 g/dL (2.5-4.5) 05/05/19 04:00 Albumin/Globulin Ratio 0.9 Ratio (1.1-2.1) L 05/05/19 04:00 Triglycerides 227 mg/dL (0-150) H 05/05/19 04:00 Cholesterol 304 mg/dL (0-200) H 05/05/19 04:00 LDL Cholesterol, Calc 229 mg/dL (0-100) H 05/05/19 04:00 HDL Cholesterol 30 mg/dL (40-60) L 05/05/19 04:00 Cholesterol/HDL Ratio 10.1 (0.0-5.0) H 05/05/19 04:00 Specimen Type Clean catch urine 05/05/19 00:05 Urine Color Ban (YELLOW) 05/05/19 00:05 Urine Appearance Clear (CLEAR) 05/05/19 00:05 Urine pH 5.0 (5.0 - 8.0) 05/05/19 00:05 Ur Specific [place] 1.030 (1.000-1.030) 05/05/19 00:05 Urine Protein 2+ (NEGATIVE) 05/05/19 00:05 Urine Glucose (UA) Negative (NEGATIVE) 05/05/19 00:05 Urine Ketones Negative (NEGATIVE) 05/05/19 00:05 Urine Occult Blood 1+ (NEGATIVE) 05/05/19 00:05 Urine Nitrite Negative (NEGATIVE) 05/05/19 00:05 Urine Bilirubin Negative (NEGATIVE) 05/05/19 00:05 Urine Urobilinogen 1+ (NORMAL) 05/05/19 00:05 Ur Leukocyte Esterase Negative (NEGATIVE) 05/05/19 00:05 Urine RBC 3-5 /HPF (0-3) A 05/05/19 00:05 Urine WBC 0-2 /HPF (0-5) 05/05/19 00:05 Ur Squamous Epith Cells Few /HPF (NEGATIVE) 05/05/19 00:05 Urine Bacteria Negative /HPF (NEGATIVE) 05/05/19 00:05 Hyaline Casts Few /LPF (NEGATIVE) 05/05/19 00:05 Urine Mucus Few /HPF (NEGATIVE) 05/05/19 00:05 Ur Culture Indicated? No/not indicated 05/05/19 00:05 Assessment/Plan 1: Unstable Angina -Pt given ASA 325mg, started on heparin gtt. Vitals stable. Discussed with hospitalist-Dr Mac at [facility], [place], [place], agrees to accept patient for transfer and evaluation by cardiology. Hospital Course Hospital Course: Transferred to [place], [place]. Discharge Medications Discharge Medications: Prescriptions: Discharge Disposition Discharge Disposition: Transferred to [place], [place]
[2019-05-05] MEDS ORDERED: ECOTRIN TAB 325 MG PO ONE (08:37)
[2019-05-05] MEDS ORDERED: HEPARIN SODIUM IN D5W 25,000 UNITS/500 ML BAG IV PRN (08:38)
[2019-05-05] MEDS ORDERED: LIPITOR TAB 40 MG PO SCH (09:00)
[2019-05-05] MEDS ORDERED: INVANZ INJ 1 GM VIAL 1 GM in NS 100 ML IV + SPIKE MINIBAG* 100 ML IV SCH (09:00)
[2019-05-05 09:23] VITALS: BP 135/65
[2019-05-05] MEDS ORDERED: HEPARIN SODIUM INJ 5000 UNITS IVP ONE ×2 (11:05→12:00)
[2019-05-05] MEDS ORDERED: HEPARIN SODIUM INJ 5000 UNITS ONE (11:08)
== END 2019-05-05 11:55 | disposition short-term general hospital (02) ==
LOC: ER 14:38 → MED/SURG 14:38 → ICU 05-05 11:07
PROVIDERS: ADMIT Family Medicine; ATTEND Family Medicine
DX: Z79.899 Other long term (current) drug therapy; R20.0 Anesthesia of skin; E11.65 Type 2 diabetes mellitus with hyperglycemia; R94.31 Abnormal electrocardiogram [ECG] [EKG]; R10.84 Generalized abdominal pain; E78.2 Mixed hyperlipidemia; Z79.01 Long term (current) use of anticoagulants; I20.0 Unstable angina
CPT/HCPCS: 36415; 71010; 71045; 80053; 80061; 81001; 82550; 82553; 83735; 84484; 85025; 85610; 85730; 93005; 96360; 96361; 96365; 96372; 96374; 96375; 99284; A4222; G0378; J1644; J2175; J2270; J2405; J2550; J7030

== ENCOUNTER 2020-11-08 08:58 | Observation (INO) ==
[2020-11-08] MEDS ORDERED: TORADOL 30 MG VIAL IVP PRN (09:42)
[2020-11-08] MEDS ORDERED: NS 1000 ML 1,000 ML IV ONE (09:48)
[2020-11-08] MEDS ORDERED: REGLAN INJ 10 MG VIAL IVP ONE (09:49)
--- NOTE | 2020-11-08 09:56 | DR.DIZZY ---
HPI Time seen Time Seen by Provider: 11/08/20 09:42 PCP Primary Care Physician: MARION HPI Comment HPI Comment: c/o HERRERA, mult falls, dizziness, all over pain, n/v. Complaint Chief Complaint Doctor Comments: recently was at the front desk person for Dr Victoria and his staff listenend to this story, stated they didnt have an apptmt today and pt came here instead. Chief Complaint:: PT REPORTS FEELING WEAK SINCE SUNDAY, WAS SEEN IN ED FOR WEAKNESS AND FACIAL PAIN, DX WITH TMJ. HAS BEEN HAVING INTERMITTENT VOMITING SINCE SAT WELL. HERE TODAY PER PCP, STATES WEAKNESS IS WORSE, SHE HAS BODYACHES, LAST VOMITED LAST NIGHT AROUND 1999. PT STATES SHE HAS NOT TAKEN ANYTHING FOR HER BODYACHES. PT ALSO STATES SHE HAS TO FINISH AN OUTPATIENT THYROID SCAN AT 1400. COVID-19 Coronavirus risk:travel/contact w/high risk person: No Has patient experienced Coronavirus symptoms: No Nurses Notes Reviewed Nurses Notes Review: Yes Source History Provided: Patient and Family Member Mode of Arrival Mode of Arrival: Wheelchair Timing Onset of Chief Complaint: 11/05/20 Symptom Onset: Known Onset of Symptoms Start Date: 11/05/20 Location of Weakness Weakness Location: Generalized Context History of: [place] Stroke Symptoms: Ataxia Associated signs and symptoms Associated Signs and Symptoms: Weak, Nausea and Vomiting PMH PMH Past Medical History: Yes Past Medical History: Anxiety, Hypertension and [place] Past Medical History Comment: THYROID CA, BPD Past Surgical History: Yes Surgical History: Appendectomy, , Cholecystectomy and Hysterectomy Past Surgical History Comment: TRIGGER FINGER Family History History of Family Medical Conditions: Yes Family Medical History: Hypertension Social History Alcohol Use: None Do you use any recreational Drugs:: No Lives Where: Home Travel Risk Coronavirus risk:travel/contact w/high risk person: No Has patient experienced Coronavirus symptoms: No Infectious screening Have you traveled outside the country in the last 6 months?: No Isolation: Standard ROS Review of Systems Constitutional: See HPI Eyes: No Symptoms Reported ENTM: No Symptoms Reported Respiratoy: No Symptoms Reported Cardiovascular: No Symptoms Reported Gastrointestinal/Abdominal: No Symptoms Reported Genitourinary: No Symptoms Reported Neurological: See HPI Musculoskeletal: See HPI Integumentary: No Symptoms Reported All Other Systems: Reviewed and Negative PE Vital Signs Vitals: Temperature 98.7 F Pulse Rate 66 Respiratory Rate 16 Blood Pressure [Left Arm] 217/110 Blood Pressure [Right Arm] 135/65 Blood Pressure 159/72 O2 Sat by Pulse Oximetry 96 General General Appearance: Alert, Anxious and In Distress Head Head Exam: Atraumatic and Normocephalic Eyes Eye exam: Normal Appearance and PERRL ENT ENT Exam: Normal Exam and Normal Oropharynx Neck Neck Exam: Normal Inspection and Full ROM Respiratory Respiratory Exam: Normal Lung Sounds Bilat; negative Accessory Muscle Use Abdominal Exam Abdominal Exam: Normal Inspection, Normal Bowel Sounds and Soft Extremeties Extremities Exam: Normal Inspection and Full ROM; negative Tenderness Back Back Exam: Normal Inspection Neurologic Neurological Exam: Alert, Oriented X3 and CN II-XII Intact; negative Motor Sensory Deficit Patient Oriented To: Person, Place and Time Motor Strength - LUE: 5/5 Motor Strength - RUE: 5/5 Motor Strength - LLE: 5/5 Motor Strength - RLE: 5/5 Skin Skin Exam: Warm, Dry and Intact ROR Labs Reviewed Laboratory Results Reviewed?: Yes Result Diagrams: 11/08/20 10:14 11/08/20 10:14 Laboratory: WBC 12.9 X10^3/uL (3.6-10.0) H 11/08/20 10:14 RBC 4.30 X10^6/uL (3.5-5.4) 11/08/20 10:14 Hgb 11.8 g/dL (12.0-16.0) L 11/08/20 10:14 Hct 34.4 % (36.0-47.0) L 11/08/20 10:14 MCV 80.0 fL (80.0-100.0) 11/08/20 10:14 MCH 27.4 pg (27.0-34.0) 11/08/20 10:14 MCHC 34.3 g/dL (33.0-35.0) 11/08/20 10:14 RDW 14.7 % (11.6-16.5) 11/08/20 10:14 Plt Count 408 X10^3/uL (150.0-450.0) 11/08/20 10:14 MPV 7.1 fL (7.4-11.0) L 11/08/20 10:14 Neut % (Auto) 59.5 % (42.0-75.0) 11/08/20 10:14 Lymph % (Auto) 30.6 % (21.0-51.0) 11/08/20 10:14 [place] % (Auto) 6.1 % (0.0-13.0) 11/08/20 10:14 Eos % (Auto) 2.8 % (0.9-2.9) 11/08/20 10:14 Baso % (Auto) 1.0 % (0.2-1.0) 11/08/20 10:14 Neut # (Auto) 7.6 x10^3/uL (2.2-4.8) H 11/08/20 10:14 Lymph # (Auto) 3.9 X10^3/uL (1.3-2.9) H 11/08/20 10:14 [place] # (Auto) 0.8 x10^3/uL (0.3-0.8) 11/08/20 10:14 Eos # (Auto) 0.4 x10^3/uL (0.0-0.2) H 11/08/20 10:14 Baso # (Auto) 0.1 X10^3/uL (0.0-0.1) 11/08/20 10:14 Absolute Nucleated RBC 0.2 /100WBC 11/08/20 10:14 Sodium 136 mmol/L (136-145) 11/08/20 10:14 Corrected Sodium 136 mmol/L (136-145) 11/08/20 10:14 Potassium 3.3 mmol/L (3.5-5.1) L 11/08/20 10:14 Chloride 99 mmol/L (98-107) 11/08/20 10:14 Carbon Dioxide 28.9 mmol/L (21-32) 11/08/20 10:14 BUN 11 mg/dL (7-18) 11/08/20 10:14 Creatinine 0.94 mg/dL (0.55-1.02) 11/08/20 10:14 Est GFR (MDRD) Af Amer > 60 (>60) 11/08/20 10:14 Est GFR (MDRD) Non-Af > 60 (>60) 11/08/20 10:14 Glucose 114 mg/dL (65-99) H 11/08/20 10:14 Calcium 9.1 mg/dL (8.5-10.1) 11/08/20 10:14 Corrected Calcium 9.7 mg/dL (8.5-10.1) 11/08/20 10:14 Total Bilirubin 0.20 mg/dL (0.2-1.0) 11/08/20 10:14 AST 15 Units/L (15-37) 11/08/20 10:14 ALT 28 Units/L (12-78) 11/08/20 10:14 Alkaline Phosphatase 111 Units/L (46-116) 11/08/20 10:14 Total Protein 7.8 g/dL (6.4-8.2) 11/08/20 10:14 Albumin 3.3 g/dL (3.4-5.0) L 11/08/20 10:14 Globulin 4.5 g/dL (2.5-4.5) 11/08/20 10:14 Albumin/Globulin Ratio 0.7 Ratio (1.1-2.1) L 11/08/20 10:14 Other Results Comments: CT, MR -see report for acute/subacute CVA Opioid Opioid Risk Tool Age (Dick box if 16-45): No History of Preadolescent Sexual Abuse: No Psychological Disease: Depression Total: 0 Total Score Risk Category: Low Risk Copyright: Fortino ÁLVAREZ predicting aberrant behaviors Diagnosis Discharge Problem: Acute cerebrovascular accident (CVA)
[2020-11-08] MEDS ORDERED: NS 1000 ML 1,000 ML ONE (10:01)
[2020-11-08] MEDS ORDERED: ZOFRAN INJ 4 MG VIAL ONE (10:01)
[2020-11-08] MEDS ORDERED: TORADOL 30 MG VIAL ONE (10:01)
[2020-11-08] MEDS ORDERED: REGLAN INJ 10 MG VIAL ONE (10:20)
[2020-11-08 10:21] LABS: BASOPHILS # (AUTO) 0.1 X10^3/uL (0.0-0.1); EOSINOPHILS # (AUTO) 0.4 x10^3/uL (0.0-0.2); EOSINOPHILS % (AUTO) 2.8 % (0.9-2.9); HEMATOCRIT 34.4 % (36.0-47.0); HEMOGLOBIN 11.8 g/dL (12.0-16.0); LYMPHOCYTES # (AUTO) 3.9 X10^3/uL (1.3-2.9); LYMPHOCYTES % (AUTO) 30.6 % (21.0-51.0); MEAN CORPUSCULAR HEMOGLOBIN 27.4 pg (27.0-34.0); MEAN CORPUSCULAR HGB CONC 34.3 g/dL (33.0-35.0); MEAN PLATELET VOLUME 7.1 fL (7.4-11.0); MONOCYTES # (AUTO) 0.8 x10^3/uL (0.3-0.8); MONOCYTES % (AUTO) 6.1 % (0.0-13.0); NEUTROPHILS # (AUTO) 7.6 x10^3/uL (2.2-4.8); NEUTROPHILS % (AUTO) 59.5 % (42.0-75.0); PLATELET COUNT 408 X10^3/uL (150.0-450.0); RED CELL DISTRIBUTION WIDTH 14.7 % (11.6-16.5); WHITE BLOOD COUNT 12.9 X10^3/uL (3.6-10.0)
[2020-11-08 10:33] LABS: ALANINE AMINOTRANSFERASE 28 Units/L (12-78); ALBUMIN 3.3 g/dL (3.4-5.0); ALKALINE PHOSPHATASE 111 Units/L (46-116); ASPARTATE AMINO TRANSFERASE 15 Units/L (15-37); BLOOD UREA NITROGEN 11 mg/dL (7-18); CALCIUM 9.1 mg/dL (8.5-10.1); CARBON DIOXIDE 28.9 mmol/L (21-32); CHLORIDE 99 mmol/L (98-107); COR CA(FOR HYPOALB) 9.7 mg/dL (8.5-10.1); COR NA(FOR HYPERGLY) 136 mmol/L (136-145); CREATININE 0.94 mg/dL (0.55-1.02); SODIUM 136 mmol/L (136-145); TOTAL PROTEIN 7.8 g/dL (6.4-8.2); eGFR NON BLACK RACES > 60 (>60)
--- NOTE | 2020-11-08 12:04 | CT ---
HISTORYHeadache with altered mental statusSTUDYCT brain without contrastCOMPARISONNone availableTECHNIQUEMultiple axial images of the brain were obtained from the skull base to the vertex [without] administration of IV contrast.Dose reduction techniques including Automated Exposure Control (AEC) and adjustment of mA and kV were utlized.FINDINGS[No acute intraparenchymal hemorrhage or mass can be identified.] [No extra-axial fluid collections are seen.] [There is a low-attenuation area in the right medial cerebellar hemisphere which could represent a subacute infarct would be better evaluated with MRI.] [The ventricular system is symmetric and nondilated.] [The extracranial structures are grossly unremarkable.]IMPRESSION[Probable subacute infarct in the right medial cerebellar hemisphere. Follow-up MRI would be of benefit for further characterization.Electronically signed by: DEANNA TORRES (Nov 08, 2020 12:02:16)
--- NOTE | 2020-11-08 14:17 | MRI ---
HISTORYR abnormal CTSTUDYBRAIN W/O CONCOMPARISONCT same dayTECHNIQUEMultiplanar multi-sequence MRI of the brain was obtained utilizing standard departmental protocol. Sagittal and axial T1 weighted images were obtained. Axial T2 and flair weighted images were performed as well. Axial diffusion weighted and ADC trace mapping was performed.FINDINGSThe midline structures appear unremarkable. The evaluation of the brain parenchyma demonstrates no abnormal signal characteristics to suggest intraparenchymal mass or hemorrhage. No extra-axial fluid collections are observed. The ventricular system appears symmetric and nondilated. The CP angle is normal in its appearance without brainstem mass or evidence for acoustic neuroma. The flow voids on both T1 and T2 weighted imaging appear unremarkable. Evaluation of the diffusion weighted imaging does demonstrate bilateral areas of restricted diffusion in the cerebellar hemispheres right greater than left. These findings are compatible with acute/subacute infarcts.. The extracranial structures are unremarkable.IMPRESSIONBilateral subacute infarcts involving cerebral hemispheres as aboveElectronically signed by: DEANNA TORRES (Nov 08, 2020 14:14:56)
--- NOTE | 2020-11-08 14:21 | MRI ---
HISTORYCVASTUDYMRA HEAD W/O CONCOMPARISONNoneTECHNIQUE3-D [id number] imaging of the intracranial circulation was performed.FINDINGSThe anterior circulation demonstrates normal anatomic findings. There is some mild narrowing of the ICAs which does not appear to be flow limiting. The ACAS and MCAs appear patent bilaterally. No aneurysms are seen.. The posterior circulation demonstrates a posterior communicating artery on the right and left. The bas vertebral basilar system is left-sided dominant. The right vertebral appears diminutive.IMPRESSIONMild narrowing of the ICAs with no flow-limiting stenosis identified.Diminutive right vertebral artery.Electronically signed by: DEANNA TORRES (Nov 08, 2020 14:19:19)
[2020-11-08] MEDS ORDERED: DILAUDID INJ IVP ONE (15:06)
[2020-11-08] MEDS ORDERED: DILAUDID INJ ONE (15:16)
[2020-11-08 20:27] VITALS: BMI 24.7
[2020-11-08] MEDS: ULTRAM PO PRN (22:35)
--- NOTE | 2020-11-08 23:11 | DR.H&P ---
H&P History & Physical for Day of: H&P Date: 11/08/20 Chief Complaint Chief Complaint: Dizziness, Headaches Falls, Nausea Allergies Allergies Allergy/AdvReac Type Severity Reaction Status Date / Time bupropion [From Wellbutrin] Allergy Verified 11/08/20 09:14 butorphanol [From Stadol] Allergy Verified 11/08/20 09:14 diphenhydramine Allergy Verified 11/08/20 09:14 [From Benadryl] Iodinated Contrast Media Allergy Verified 11/08/20 09:14 Penicillins Allergy Verified 11/08/20 09:14 haloperidol [From Haldol] AdvReac Verified 11/08/20 09:14 ketorolac [From Toradol] AdvReac Verified 11/08/20 09:14 History of Present Illness History of Present Illness: Pt is a 55 year old female past medical history of HTN, [place], [place], presenting after having nausea, dizziness, headache, weakness, and multiple falls for the past 3 days. She was to have outpatient workup on thyroid today when symptoms reoccurred so she went to ED. Labs/imaging: Wbc 12.6, Hgb 11.8, Plt 392, Na 139, K 3.8, Creatinine 0.94, Glucose 96. CT-head: Probable subacute infarct in the right medial cerebellar hemisphere. MRI/MRA was then obtained that revealed: Mild narrowing of the ICAs with no flow-limiting stenosis identified. Diminutive right vertebral artery. Bilateral subacute infarcts involving cerebral hemispheres as above. Pt was admitted for CVA, ordered neuro checks, ASA, Plavix, restart home medications. Pt does not have any focal neurological deficits on exam. Order PT/OT for further evaluation. She has had recent Echo and Carotid duplex by cardiology, do not need to repeat at this time. Continue to monitor and follow up labs in the morning. Past Medical History Past Medical History: Anxiety, Hypertension and [place] Additional Medical History: DUODENAL CARCINOID TUMOR (2016) Past Surgical History Surgical History: Appendectomy, , Cholecystectomy and Hysterectomy Additional Surgical History: EGD/COLONSCOPY Family History Family Medical History: Hypertension Social History Does any household member use tobacco: Yes Alcohol Use: None Drug Use: None Medications Home Medications: bupropion [From Wellbutrin] Allergy (Verified 11/08/20 09:14) butorphanol [From Stadol] Allergy (Verified 11/08/20 09:14) diphenhydramine [From Benadryl] Allergy (Verified 11/08/20 09:14) Iodinated Contrast Media Allergy (Verified 11/08/20 09:14) Penicillins Allergy (Verified 11/08/20 09:14) haloperidol [From Haldol] Adverse Reaction (Verified 11/08/20 09:14) ketorolac [From Toradol] Adverse Reaction (Verified 11/08/20 09:14) CONTINUE taking the following medications clonazepam [Klonopin] 1 mg PO TID 11/08/20 [History] sertraline 25 mg PO Q24H 11/08/20 [History] zolpidem [Ambien] 10 mg PO QHS PRN 11/08/20 [History] Labs Result Diagrams: 11/09/20 05:44 11/09/20 05:44 Labs: Laboratory WBC 12.9 X10^3/uL (3.6-10.0) H 11/08/20 10:14 RBC 4.30 X10^6/uL (3.5-5.4) 11/08/20 10:14 Hgb 11.8 g/dL (12.0-16.0) L 11/08/20 10:14 Hct 34.4 % (36.0-47.0) L 11/08/20 10:14 MCV 80.0 fL (80.0-100.0) 11/08/20 10:14 MCH 27.4 pg (27.0-34.0) 11/08/20 10:14 MCHC 34.3 g/dL (33.0-35.0) 11/08/20 10:14 RDW 14.7 % (11.6-16.5) 11/08/20 10:14 Plt Count 408 X10^3/uL (150.0-450.0) 11/08/20 10:14 MPV 7.1 fL (7.4-11.0) L 11/08/20 10:14 Neut % (Auto) 59.5 % (42.0-75.0) 11/08/20 10:14 Lymph % (Auto) 30.6 % (21.0-51.0) 11/08/20 10:14 Story % (Auto) 6.1 % (0.0-13.0) 11/08/20 10:14 Eos % (Auto) 2.8 % (0.9-2.9) 11/08/20 10:14 Baso % (Auto) 1.0 % (0.2-1.0) 11/08/20 10:14 Neut # (Auto) 7.6 x10^3/uL (2.2-4.8) H 11/08/20 10:14 Lymph # (Auto) 3.9 X10^3/uL (1.3-2.9) H 11/08/20 10:14 Story # (Auto) 0.8 x10^3/uL (0.3-0.8) 11/08/20 10:14 Eos # (Auto) 0.4 x10^3/uL (0.0-0.2) H 11/08/20 10:14 Baso # (Auto) 0.1 X10^3/uL (0.0-0.1) 11/08/20 10:14 Absolute Nucleated RBC 0.2 /100WBC 11/08/20 10:14 Sodium 136 mmol/L (136-145) 11/08/20 10:14 Corrected Sodium 136 mmol/L (136-145) 11/08/20 10:14 Potassium 3.3 mmol/L (3.5-5.1) L 11/08/20 10:14 Chloride 99 mmol/L (98-107) 11/08/20 10:14 Carbon Dioxide 28.9 mmol/L (21-32) 11/08/20 10:14 BUN 11 mg/dL (7-18) 11/08/20 10:14 Creatinine 0.94 mg/dL (0.55-1.02) 11/08/20 10:14 Est GFR (MDRD) Af Amer > 60 (>60) 11/08/20 10:14 Est GFR (MDRD) Non-Af > 60 (>60) 11/08/20 10:14 Glucose 114 mg/dL (65-99) H 11/08/20 10:14 Calcium 9.1 mg/dL (8.5-10.1) 11/08/20 10:14 Corrected Calcium 9.7 mg/dL (8.5-10.1) 11/08/20 10:14 Total Bilirubin 0.20 mg/dL (0.2-1.0) 11/08/20 10:14 AST 15 Units/L (15-37) 11/08/20 10:14 ALT 28 Units/L (12-78) 11/08/20 10:14 Alkaline Phosphatase 111 Units/L (46-116) 11/08/20 10:14 Total Protein 7.8 g/dL (6.4-8.2) 11/08/20 10:14 Albumin 3.3 g/dL (3.4-5.0) L 11/08/20 10:14 Globulin 4.5 g/dL (2.5-4.5) 11/08/20 10:14 Albumin/Globulin Ratio 0.7 Ratio (1.1-2.1) L 11/08/20 10:14 SARS CoV-2 RNA Rapid OSORIO Negative (NEGATIVE) 11/08/20 15:22 Review of Systems Constitutional: Weakness; denies Fever and Chills Eyes: No Symptoms Reported ENT: No Symptoms Reported Respiratory: No Symptoms Reported Cardiovascular: No Symptoms Reported Gastrointestinal: No Symptoms Reported Genitourinary: No Symptoms Reported Musculoskeletal: No Symptoms Reported Skin: No Symptoms Reported Neurological: No Symptoms Reported Physical Exam Vital Signs: Temperature 97.9 F Pulse Rate [Left] 76 Pulse Rate 81 Respiratory Rate 18 Blood Pressure [Left Arm] 217/110 Blood Pressure [Right Arm] 174/74 Blood Pressure 159/71 O2 Sat by Pulse Oximetry 99 Oriented: Normal Eyes: Normal Ear: Normal Nose: Normal Throat: Normal Respiratory: Clear Throughout Cardiovascular: Normal : Normal Auscultation: Bowel Sounds: Normal Palpation: Normal Tenderness: Normal Skin: Normal Musculoskeletal: Normal Psychiatric: Normal Mood Description: Calm and Appropriate Affect: Normal Speech Pattern: Clear and Appropriate Assessment/Plan (1) CVA (cerebral vascular accident): Status: Acute Plan: Subacute CVA on MRI/MRA, no neuro focal deficits on exam PT/OT evaluation, neuro checks, Review H&P Reviewed: Yes Patient was examined?: Yes
[2020-11-08] MEDS ORDERED: ZOFRAN TAB 4 MG PO SCH (23:45)
[2020-11-09 04:19] VITALS: BP 158/70
[2020-11-09 05:50] LABS: BILIRUBIN,URINE NEGATIVE (NEGATIVE); BLOOD/HEMOGLOBIN,URINE NEGATIVE (NEGATIVE); GLUCOSE, URINE NEGATIVE (NEGATIVE); KETONES,URINE NEGATIVE (NEGATIVE); LEUKOCYTE ESTERASE ,URINE NEGATIVE (NEGATIVE); NITRITES,URINE NEGATIVE (NEGATIVE); PROTEIN,URINE NEGATIVE (NEGATIVE); UROBILINOGEN,URINE NORMAL (NORMAL)
[2020-11-09 05:51] LABS: APPEARANCE,URINE CLEAR (CLEAR); COLOR,URINE YELLOW (YELLOW)
[2020-11-09 06:19] LABS: BASOPHILS # (AUTO) 0.2 X10^3/uL (0.0-0.1); BASOPHILS % (AUTO) 1.4 % (0.2-1.0); EOSINOPHILS # (AUTO) 0.6 x10^3/uL (0.0-0.2); HEMATOCRIT 34.8 % (36.0-47.0); HEMOGLOBIN 11.8 g/dL (12.0-16.0); LYMPHOCYTES # (AUTO) 4.9 X10^3/uL (1.3-2.9); LYMPHOCYTES % (AUTO) 38.9 % (21.0-51.0); MEAN CORPUSCULAR VOLUME 79.6 fL (80.0-100.0); MEAN PLATELET VOLUME 7.4 fL (7.4-11.0); MONOCYTES # (AUTO) 0.6 x10^3/uL (0.3-0.8); NEUTROPHILS # (AUTO) 6.2 x10^3/uL (2.2-4.8); NEUTROPHILS % (AUTO) 49.7 % (42.0-75.0); PLATELET COUNT 392 X10^3/uL (150.0-450.0); RED BLOOD COUNT 4.37 X10^6/uL (3.5-5.4); RED CELL DISTRIBUTION WIDTH 14.6 % (11.6-16.5); WHITE BLOOD COUNT 12.6 X10^3/uL (3.6-10.0)
[2020-11-09] MEDS: ULTRAM PO PRN (06:25)
[2020-11-09 06:40] LABS: ALANINE AMINOTRANSFERASE 22 Units/L (12-78); ALKALINE PHOSPHATASE 99 Units/L (46-116); ASPARTATE AMINO TRANSFERASE 13 Units/L (15-37); BLOOD UREA NITROGEN 11 mg/dL (7-18); CALCIUM 8.6 mg/dL (8.5-10.1); CARBON DIOXIDE 26.3 mmol/L (21-32); CHLORIDE 103 mmol/L (98-107); COR CA(FOR HYPOALB) 9.4 mg/dL (8.5-10.1); CREATININE 0.94 mg/dL (0.55-1.02); SODIUM 139 mmol/L (136-145); TOTAL PROTEIN 7.1 g/dL (6.4-8.2); eGFR NON BLACK RACES > 60 (>60)
[2020-11-09] MEDS ORDERED: ABILIFY PO SCH (09:00)
[2020-11-09] MEDS ORDERED: ZESTRIL TAB 10 MG PO SCH (09:00)
[2020-11-09] MEDS ORDERED: ARIPIPRAZOLE 30 MG PO SCH (09:00)
[2020-11-09] MEDS ORDERED: LIPITOR TAB 40 MG PO SCH (09:00)
[2020-11-09] MEDS ORDERED: KLONOPIN TAB 1 MG PO SCH (09:00)
[2020-11-09] MEDS ORDERED: PLAVIX PO SCH (09:00)
[2020-11-09] MEDS ORDERED: COREG TAB 25 MG PO SCH (09:00)
[2020-11-09] MEDS ORDERED: NORVASC TAB 10 MG PO SCH (09:00)
[2020-11-09] MEDS ORDERED: ASPIRIN 81 MG CHEWTAB PO SCH (09:00)
== END 2020-11-09 08:03 | disposition left against medical advice (07) ==
LOC: ER 09:12 → MED/SURG 09:12
PROVIDERS: ADMIT Family Medicine; ATTEND Family Medicine
DX: Z53.29 Procedure and treatment not carried out because of patient's decision for other reasons; E01.0 Iodine-deficiency related diffuse (endemic) goiter; I63.89 Other cerebral infarction; R29.6 Repeated falls; Z86.73 Personal history of transient ischemic attack (TIA), and cerebral infarction without residual deficits; R41.82 Altered mental status, unspecified; R51.9 Headache, unspecified; I10 Essential (primary) hypertension; Z20.822 Contact with and (suspected) exposure to COVID-19